=== PATIENT | female | born 1950 | race Caucasian/White ===

== ENCOUNTER 2020-02-28 11:16 | Emergency (ER) | payer OTHER ==
[2020-02-28] MEDS ORDERED: MAGNE/ALUM HYDROXD 30 ML UCUP ONE (12:09)
[2020-02-28] MEDS ORDERED: NA CHLORIDE 0.9% 1,000 ML ONE (12:09)
[2020-02-28] MEDS ORDERED: SIMETHICONE 80 MG TAB ONE (12:09)
[2020-02-28] MEDS ORDERED: LIDOCAINE VISCOUS 2% SOLN 15 ML UDC ONE (12:10)
[2020-02-28 12:41] LABS: Absolute Lymphocytes (CBC) 1.3 K/uL (0.7-4.9); Basophils % 0.4 % (0-1.3); MPV 8.2 fL (7.6-11.3)
--- NOTE | 2020-02-28 12:50 | RAD REPORT ---
EXAM DESCRIPTION: RAD - Chest Single View - 02/28/2020 12:44 pm CLINICAL HISTORY: CHEST PAIN COMPARISON: None TECHNIQUE: AP portable chest image was obtained 02/28/2020 12:44 pm . FINDINGS: Lungs are clear. Cardiac silhouette is enlarged. Vasculature within normal limits. Trachea is midline. No measurable pleural effusion and no pneumothorax. No acute bony abnormality seen. No a cute aortic findings suspected. IMPRESSION: Mild cardiac enlargement without acute failure or volume overload. No acute lung parenchymal process.
[2020-02-28 12:53] LABS: ALT/SGPT 30 U/L (12-78); AST/SGOT 24 U/L (15-37); Albumin 3.2 g/dL (3.4-5.0); Alkaline Phosphatase 85 U/L (45-117); BUN Blood Urea Nitrogen 14 mg/dL (7-18); Bicarbonate 28 mmol/L (21-32); Bilirubin Direct 0.1 mg/dL (0-0.2); Bilirubin Total 0.4 mg/dL (0.2-1.0); Glucose Level 143 mg/dL (74-106); Potassium 4.6 mmol/L (3.5-5.1); Protein, Total 7.5 g/dL (6.4-8.2); Sodium Level 135 mmol/L (136-145); Troponin (Emerg Dept Use Only) < 0.02 ng/mL (0.0-0.045)
--- NOTE | 2020-02-28 13:50 | ER ---
Nurse's Notes [facility] Name: Jenny Cuellar Age: 69 yrs Sex: Female : 1950 Arrival Date: 02/28/2020 Time: 11:18 Bed 17 Private MD: Diagnosis: Cardiomegaly;Anemia, unspecified Presentation: 02/27 11:31 Chief complaint: Patient states: Thursday on the 16 of February I had chest pain at 0400. ca1 Went to [facility] and was transferred to [place]. They did test on me including a cardiac cath technician. They said it was okay. This chest pain started 3 days ago. It starts on the epigastric area and like my esophagus. I also had diarrhea on and off. Denies N/V. I also have low back pain and taking this medication for the liver transplant that I had on 2007. Coronavirus screen: Proceed with normal triage. Patient denies a cough. Patient denies shortness of breath or difficulty breathing. Patient denies measured and/or subjective temperature greater than 100.4F prior to today's visit. Patient denies travel on a cruise ship or to a country the [facility] currently lists as an affected area. Patient denies contact with known and/or suspected case of COVID-19. Ebola Screen: Patient negative for fever greater than or equal to 101.5 degrees Fahrenheit, and additional compatible Ebola Virus Disease symptoms Patient denies exposure to infectious person. Patient denies travel to an Ebola-affected area in the 21 days before illness onset. No symptoms or risks identified at this time. Initial Sepsis Screen: Does the patient meet any 2 criteria? No. Patient's initial sepsis screen is negative. Does the patient have a suspected source of infection? No. Patient's initial sepsis screen is negative. Risk Assessment: Do you want to hurt yourself or someone else? Patient reports no desire to harm self or others. 11:31 Method Of Arrival: Ambulatory ca1 11:31 Acuity: [place] 3 ca1 Historical: - Allergies: 11:40 RICCARDO Inhibitors; ca1 - PMHx: 11:40 Hypertension; Hyperlipidemia; Thyroid problem; ca1 - PSHx: 11:40 Liver Transplant; ca1 - Immunization history:: Adult Immunizations up to date. - Social history:: Smoking status: Patient denies any tobacco usage or history of. Screenin:40 Abuse screen: Denies threats or abuse. Denies injuries from another. Nutritional ca1 screening: No deficits noted. Tuberculosis screening: No symptoms or risk factors identified. Fall Risk IV access (20 points). Assessment: 11:40 General: Appears in no apparent distress. comfortable, Behavior is calm, cooperative, ca1 appropriate for age. Pain: Complains of pain in xyphoid area and mid-sternal area Pain does not radiate. Pain currently is 7 out of 10 on a pain scale. Pain began 2-3 days ago. Is intermittent. Neuro: Level of Consciousness is awake, alert, obeys commands, Oriented to person, place, time, situation. Cardiovascular: Heart tones S1 S2 present Capillary refill < 3 seconds Patient's skin is warm and dry. Rhythm is sinus rhythm. Respiratory: Airway is patent Respiratory effort is even, unlabored, Respiratory pattern is regular, symmetrical, Breath sounds are clear bilaterally. GI: Abdomen is flat, non-distended, Bowel sounds present X 4 quads. Abd is soft and non tender X 4 quads. GI: Reports diarrhea. : No signs and/or symptoms were reported regarding the genitourinary system. EENT: No signs and/or symptoms were reported regarding the EENT system. Derm: Skin is intact, is healthy with good turgor, Skin is pink, warm \T\ dry. Musculoskeletal: Circulation, motion, and sensation intact. Capillary refill < 3 seconds. 12:45 Reassessment: Patient appears in no apparent distress at this time. Patient and/or ca1 family updated on plan of care and expected duration. Pain level reassessed. Patient is alert, oriented x 3, equal unlabored respirations, skin warm/dry/pink. 14:08 Reassessment: Patient appears in no apparent distress at this time. Patient and/or rb1 family updated on plan of care and expected duration. Pain level reassessed. Patient is alert, oriented x 3, equal unlabored respirations, skin warm/dry/pink. Vital Signs: 11:31 BP 140 / 73; Pulse 94; Resp 18 S; Temp 97.5(TE); Pulse Ox 99% on R/A; Weight 79.38 kg ca1 (R); Height 5 ft. 5 in. (165.10 cm) (R); Pain 6/10; 12:55 BP 115 / 56; Pulse 81; Resp 17; Temp 97.6(O); Pulse Ox 100% on R/A; mh5 14:00 BP 122 / 73; Pulse 86; Resp 22; Pulse Ox 100% ; rb1 11:31 Body Mass Index 29.12 (79.38 kg, 165.10 cm) ca1 ED Course: 11:18 Patient arrived in ED. ag5 11:31 Nikki Higuera, BRANDON is Primary Nurse. ca1 11:39 Triage completed. ca1 11:40 Arm band placed on right wrist. ca1 11:43 [facility] Dhillon [facility]C [facility] snw 11:43 Rodrigo Strong MD is Attending Physician. snw 12:10 No provider procedures requiring assistance completed. Initial lab(s) drawn, by ny, ca1 sent to lab. Inserted saline lock: 20 gauge in right antecubital area, using aseptic technique. Blood collected. 12:44 Chest Single View XRAY In Process Unspecified. EDMS 12:56 Patient has correct armband on for positive identification. Placed in gown. Bed in low mh5 position. Call light in reach. Side rails up X 1. Warm blanket given. hide puller on. Pulse ox on. NIBP on. 12:56 EKG done, by ED staff, reviewed by Krissy HESS. 5 14:00 Report given to BRANDON Dowd. ca1 14:24 IV discontinued, Pressure dressing applied. mh5 14:33 IV discontinued, intact, bleeding controlled, No redness/swelling at site. Pressure rb1 dressing applied. Administered Medications: 12:00 Drug: Simethicone 240 mg Route: PO; ca1 13:00 Follow up: Response: No adverse reaction ls4 12:02 Drug: GI Cocktail without - (Maalox Suspension 30 ml, Lidocaine Liquid 2 % 15 ca1 ml) Route: PO; 13:02 Follow up: Response: No adverse reaction ls4 12:13 Drug: NS 0.9% 1000 ml Route: IV; Rate: 125 ml/hr; Site: right antecubital; ca1 13:32 Follow up: IV Status: Completed infusion; IV Intake: 1000ml ls4 Intake: 13:32 IV: 1000ml; Total: 1000ml. ls4 Outcome: 13:49 Discharge ordered by . snw 14:33 Patient left the ED. ls4 14:33 Discharged to home ambulatory. rb1 14:33 Condition: stable 14:33 Discharge instructions given to patient, Instructed on discharge instructions, follow rb1 up and referral plans. Demonstrated understanding of instructions, follow-up care. Signatures: Dispatcher [employer] EDKrissy Lubin, NEWSCAST DIRECTOR-C NEWSCAST DIRECTOR-Csnw Noemí Henderson RN RN rb1 Larissa Lilly [facility] Ivon Wolf RN RN ls4 Nikki Higuera RN RN ca1 Maico Reyes [facility]
--- NOTE | 2020-02-28 13:50 | EDPHYS ---
Physician Documentation [facility] Name: Jenny Cuellar Age: 69 yrs Sex: Female : 1950 Arrival Date: 02/28/2020 Time: 11:18 Bed 17 Private MD: ED Physician Rodrigo Strong HPI: 02/27 11:57 This 69 yrs old Female presents to ER via Ambulatory with complaints of snw Breathing Difficulty, Chest Pain, Chest Pressure. 11:57 The patient has shortness of breath with light activity. Onset: The symptoms/episode snw began/occurred gradually, and became persistent. Duration: The symptoms are continuous. Associated signs and symptoms: Pertinent positives: nausea, feels like food doesn't go down well, sticks and causes discomfort, no vomiting, + nausea, no constipation, + loose stools. Severity of symptoms: At their worst the symptoms were moderate in the emergency department the symptoms are unchanged. The patient has not experienced similar symptoms in the past. cardiac cath last week at [place]. No stent. Historical: - Allergies: 11:40 RICCARDO Inhibitors; ca1 - PMHx: 11:40 Hypertension; Hyperlipidemia; Thyroid problem; ca1 - PSHx: 11:40 Liver Transplant; ca1 - Immunization history:: Adult Immunizations up to date. - Social history:: Smoking status: Patient denies any tobacco usage or history of. ROS: 11:56 Eyes: Negative for injury, pain, redness, and discharge, ENT: Negative for injury, snw pain, and discharge, Neck: Negative for injury, pain, and swelling. 11:56 Respiratory: Negative for shortness of breath, cough, wheezing, and pleuritic chest pain. 11:56 Back: Negative for injury and pain, : Negative for injury, bleeding, discharge, and swelling, MS/Extremity: Negative for injury and deformity, Skin: Negative for injury, rash, and discoloration, Neuro: Negative for headache, weakness, numbness, tingling, and seizure. 11:56 Constitutional: Positive for body aches, fatigue, poor PO intake. 11:56 Cardiovascular: Positive for chest pain. 11:56 Abdomen/GI: Positive for abdominal pain, nausea, gas, loose stools. Exam: 11:55 Constitutional: This is a well developed, well nourished patient who is awake, alert, snw and in no acute distress. Head/Face: Normocephalic, atraumatic. Eyes: Pupils equal round and reactive to light, extra-ocular motions intact. Lids and lashes normal. Conjunctiva and sclera are non-icteric and not injected. Cornea within normal limits. Periorbital areas with no swelling, redness, or edema. ENT: Nares patent. No nasal discharge, no septal abnormalities noted. Tympanic membranes are normal and external auditory canals are clear. Oropharynx with no redness, swelling, or masses, exudates, or evidence of obstruction, uvula midline. Mucous membranes moist. Neck: Trachea midline, no thyromegaly or masses palpated, and no cervical lymphadenopathy. Supple, full range of motion without nuchal rigidity, or vertebral point tenderness. No Meningismus. Chest/axilla: Normal chest wall appearance and motion. Nontender with no deformity. No lesions are appreciated. 11:55 Respiratory: Lungs have equal breath sounds bilaterally, clear to auscultation and percussion. No rales, rhonchi or wheezes noted. No increased work of breathing, no retractions or nasal flaring. Back: No spinal tenderness. No costovertebral tenderness. Full range of motion. 11:55 Skin: Warm, dry with normal turgor. Normal color with no rashes, no lesions, and no evidence of cellulitis. MS/ Extremity: Pulses equal, no cyanosis. Neurovascular intact. Full, normal range of motion. Neuro: Awake and alert, GCS 15, oriented to person, place, time, and situation. Cranial nerves II-XII grossly intact. Motor strength 5/5 in all extremities. Sensory grossly intact. Cerebellar exam normal. Normal gait. Psych: Awake, alert, with orientation to person, place and time. Behavior, mood, and affect are within normal limits. 11:55 Cardiovascular: Rate: normal, Rhythm: regular, Pulses: no pulse deficits are appreciated, Heart sounds: murmur, Edema: is not appreciated. 11:55 Abdomen/GI: Inspection: abdomen appears normal, Bowel sounds: hyperactive, in all quadrants, Palpation: abdomen is soft and non-tender. Vital Signs: 11:31 BP 140 / 73; Pulse 94; Resp 18 S; Temp 97.5(TE); Pulse Ox 99% on R/A; Weight 79.38 kg ca1 (R); Height 5 ft. 5 in. (165.10 cm) (R); Pain 6/10; 12:55 BP 115 / 56; Pulse 81; Resp 17; Temp 97.6(O); Pulse Ox 100% on R/A; mh5 14:00 BP 122 / 73; Pulse 86; Resp 22; Pulse Ox 100% ; rb1 11:31 Body Mass Index 29.12 (79.38 kg, 165.10 cm) ca1 MDM: 12:09 Patient medically screened. snw 13:52 Data reviewed: vital signs, nurses notes. Data interpreted: Pulse oximetry: on room air snw is 100 %. Interpretation: normal. Counseling: I had a detailed discussion with the patient and/or guardian regarding: the historical points, exam findings, and any diagnostic results supporting the discharge/admit diagnosis, lab results, radiology results, the need for outpatient follow up, to return to the emergency department if symptoms worsen or persist or if there are any questions or concerns that arise at home. Special discussion: Based on the patient's history, exam, and Dx evaluation, there is no indication for emergent intervention or inpatient Tx. It is understood by the patient/guardian that if the Sx's persist or worsen they need to return immediately for re-evaluation. Based on the patient's Hx, exam, and Dx evaluation, there is no indication for emergent surgery or inpatient Tx. It is understood by the patient/guardian that if the Sx's persist or worsen they need to return immediately for re-evaluation. Based on the history and exam findings, there is no indication for further emergent testing or inpatient evaluation. I discussed with the patient/guardian the need to see the applications system analyst for further evaluation of the symptoms. I discussed with the patient/guardian the need to see the software support engineer for further evaluation of the symptoms. I discussed with the patient/guardian the need to see the primary care provider for further evaluation of the symptoms. 02/27 11:55 Order name: CBC with Diff; Complete Time: 12:46 snw 02/27 11:55 Order name: Chem 7; Complete Time: 13:08 snw 02/27 11:55 Order name: Chest Single View XRAY; Complete Time: 13:16 snw 02/27 11:55 Order name: LFT's; Complete Time: 13:08 snw 02/27 11:55 Order name: Troponin (emerg Dept Use Only); Complete Time: 13:08 snw 02/27 11:57 Order name: TSH; Complete Time: 13:08 snw 02/27 11:55 Order name: EKG; Complete Time: 11:56 snw 02/27 11:55 Order name: EKG - Nurse/Tech; Complete Time: 12:13 snw Administered Medications: 12:00 Drug: Simethicone 240 mg Route: PO; ca1 13:00 Follow up: Response: No adverse reaction ls4 12:02 Drug: GI Cocktail without - (Maalox Suspension 30 ml, Lidocaine Liquid 2 % 15 ca1 ml) Route: PO; 13:02 Follow up: Response: No adverse reaction ls4 12:13 Drug: NS 0.9% 1000 ml Route: IV; Rate: 125 ml/hr; Site: right antecubital; ca1 13:32 Follow up: IV Status: Completed infusion; IV Intake: 1000ml ls4 Disposition: 02/28/20 13:49 Discharged to Home. Impression: Cardiomegaly, Anemia, unspecified. - Condition is Stable. - Discharge Instructions: Anemia, Nonspecific, Gastritis, Adult. - Medication Reconciliation Form, Thank You Letter, Antibiotic Education, Prescription Opioid Use form. - Follow up: Emergency Department; When: As needed; Reason: Worsening of condition. Follow up: Private Physician; When: 2 - 3 days; Reason: Recheck today's complaints, Continuance of care, Re-evaluation by your physician. Addendum: 03/01/2020 21:11 Co-signature as Attending Physician, Rodrigo Strong MD Did not see or evaluate patient. p s1 I was available in the ED for consultation. Signature for administrative purposes. . Signatures: Dispatcher [employer] EDMS Krissy Ness, LEAD INSTRUCTOR/FLIGHT ATTENDANT-C LEAD INSTRUCTOR/FLIGHT ATTENDANT-Csnw Rodrigo Strong MD MD ps1 Ivon Wolf, RN RN ls4 Nikki Higuera RN RN ca1 Corrections: (The following items were deleted from the chart) 02/27 14:02 13:49 02/28/2020 13:49 Discharged to Home. Impression: Cardiomegaly; Anemia, ls4 unspecified. Condition is Stable. Forms are Medication Reconciliation Form, Thank You Letter, Antibiotic Education, Prescription Opioid Use. Follow up: Emergency Department; When: As needed; Reason: Worsening of condition. Follow up: Private Physician; When: 2 - 3 days; Reason: Recheck today's complaints, Continuance of care, Re-evaluation by your physician. tino 14:33 14:02 02/28/2020 13:49 Discharged to Home. Impression: Cardiomegaly; Anemia, ls4 unspecified. Condition is Stable. Discharge Instructions: Anemia, Nonspecific, Gastritis, Adult. Forms are Medication Reconciliation Form, Thank You Letter, Antibiotic Education, Prescription Opioid Use. Follow up: Emergency Department; When: As needed; Reason: Worsening of condition. Follow up: Private Physician; When: 2 - 3 days; Reason: Recheck today's complaints, Continuance of care, Re-evaluation by your physician. ls4
[2020-02-28 15:00] VITALS: BP 115/56; TEMP 97.6; O2SAT 100
--- OUTSIDE RECORDS SUMMARY | 2020-02-28 22:33 | XMS REPORT | Clinical Summary ---
:1950 Author Organization [facility] Address [address] [place] [address] Care Team Providers Name Role Phone Heena Rivera MD Primary Care Provider [phone] Allergies Active Allergy Reactions Severity Noted Date Comments Bam Inhibitors Hives, Itching 12/25/2012 Medications Medication Sig Dispensed Refills Start Date End Date Status clopidogrel (PLAVIX) 75 Take 75 mg by 0 Active mg tablet mouth. aspirin (ECOTRIN) 81 MG Take 81 mg by 0 Active enteric coated tablet mouth. amLODIPine (NORVASC) 5 Take 5 mg by 0 Active mg tablet mouth. coenzyme Q10 200 mg Take 200 mg by 0 Active capsule mouth. estradiol (VIVELLE-DOT) Place 1 patch on 0 Active 0.05 mg/24 hr the skin. levothyroxine Take 75 mcg by 0 A ctive (SYNTHROID, LEVOXYL) 75 mouth. mcg tablet magnesium oxide Take 400 mg by 0 05/23/2016 Active (MAG-OX) 400 mg tablet mouth 2 (two) times a day. metoprolol tartrate 50 mg- Take one 0 Active (LOPRESSOR) 50 mg tablet daily tablet rosuvastatin (CRESTOR) Take 10 mg by 0 Active 10 MG tablet mouth. calcium carbonate 300 Chew 1 tablet. 0 Active mg (750 mg) tablet,chewable pantoprazole (PROTONIX) TK 1 T PO QD. 1 04/10/2017 Active 40 MG EC tablet tacrolimus (PROGRAF) 1 Take 1 capsule 3 0 Active MG capsule times a day by oral route. Active Problems Problem Noted Date Essential hypertension 06/09/2017 Encounters Date Type Specialty Care Team Description 01/02/2020 Travel after 02/27/2019 Social History Tobacco Use Types Packs/Day Years Used Date Former Smoker Sex Assigned at Date Recorded Not on file Job Start Date Occupation Industry Not on file Not on file Not on file Travel History Travel Start Travel End No recent travel history available. Last Filed Vital Signs Not on file Plan of Treatment Date Type Specialty Care Team Description 03/06/2020 Office Visit Cardiology Jarvis Bermudez MD [address] [facility] [address] [place], [place] [address] [phone] Health Maintenance Due Date Last Done Comments BREAST CANCER SCREENING 2001 COLONOSCOPY SCREENING 2001 SHINGLES VACCINES (#1) 2001 65+ PNEUMOCOCCAL VACCINE (1 of 2 - PCV13) 2016 INFLUENZA VACCINE 03/24/2020 Results Not on fileafter 02/27/2019 Insurance Payer Benefit Plan / Subscriber ID Effective Dates Phone Addre ss Type Group MEDICARE MEDICARE PART A xxxxxxxxxxx 2016-Present [place], [place] Medicare AND B AETNA AETNA PPO OPEN xxxxxxxxxx 2000-Present PPO CHOICE Advance Directives For more information, please contact: [phone] Type Date Recorded Patient Authorization Representative Explanati on Advance Directives, Living Will and Medical Power of Molder Wax Ball
--- OUTSIDE RECORDS SUMMARY | 2020-02-28 22:34 | XMS REPORT | Clinical Summary ---
:1950 Author Organization [facility] Address [address] [place] [address] Care Team Providers Name Role Phone Nasreen Obed Primary Care Provider Allergies Active Allergy Reactions Severity Noted Date Comments Bam Inhibitors Hives, Itching 12/25/2012 Medications Medication Sig Dispensed Refills Start Date End Date Status omega-3 acid ethyl Take 1 g by 0 Active esters (LOVAZA) 1 mouth 2 (two) gram capsule times daily . lansoprazole Take 30 mg by 0 Act kenya (PREVACID) 30 MG mouth daily. capsule rosuvastatin Take 20 mg by 0 Act kenya (CRESTOR) 10 MG mouth daily . tablet clopidogrel Take 75 mg by 0 Acti ve (PLAVIX) 75 mg mouth daily. tablet aspirin 81 MG EC Take 81 mg by 0 Active tablet mouth 3 (three) times a week Patient states she takes the on Thursday and Thursday per PCP recommendation . amLODIPine Take 5 mg by 0 Active (NORVASC) 5 MG mouth daily . tablet levothyroxine Take 75 mcg by 0 A ctive (SYNTHROID, mouth daily. LEVOTHROID) 75 MCG tablet fexofenadine Take 180 mg by 0 Ac tive (MATTHEW) 180 MG mouth daily. tablet metoprolol Take 50 mg by 0 Activ e (TOPROL-XL) 100 MG mouth daily . 24 hr tablet coenzyme Q10 (CO Take 200 mg by 0 Active Q-10) 200 mg mouth daily. capsule lactobacillus Take 14 mg by 0 Ac tive acidophilus Cap mouth. CALCIUM CARBONATE Take 2 tablets 0 Active ORAL by mouth once Per patient 2 gummies = 1000 mg. cevimeline (EVOXAC) Take 30 mg by 0 Active 30 mg capsule mouth 3 (three) times daily. fluticasone 2 sprays by 0 Active (FLONASE) 50 Nasal route 2 mcg/actuation nasal (two) times spray daily. ALPRAZolam (XANAX) TK / TO 1 T 2 06/20/2019 Active 0.5 MG tablet PO QD PRN magnesium oxide Take 2 tablets 0 06/30/2019 Active (MAG-OX) 400 mg (800 mg total) (241.3 mg by mouth 2 magnesium) tablet (two) times daily. tacrolimus TAKE 2 270 capsule 3 01/13/2020 Active (PROGRAF) 1 MG CAPSULES BY capsule MOUTH EVERY MORNING AND 1 CAPSULE BY MOUTH EVERY EVENING.. estradiol Place 1 patch 0 Discon tinued (VIVELLE-DOT) 0.05 onto the skin 9 mg/24 hr patch twice a week. magnesium oxide Take 1 tablet 270 tablet 3 05/23/2016 06/30/20 1 Discontinued (MAG-OX) 400 mg (400 mg total) 9 tablet by mouth 3 (three) times daily with meals. tacrolimus TAKE 2 270 capsule 3 12/27/2018 Discon tinued (PROGRAF) 1 MG CAPSULES BY 0 capsule MOUTH EVERY MORNING AND 1 CAPSULE EVERY EVENING. Active Problems Problem Noted Date Immunosuppressed status 05/29/2015 Last Assessment & Plan: Patient is currently on tacrolimus monot herapy 2mg twice daily. Given that she has done very well overall without evidence of rejection and her known CKD, we will titrate her Prograf down to 2 mg and 1 m g daily. HCV (hepatitis C virus) 05/29/2015 Last Assessment & Plan: The patient achieved sustained virologic response prior to transplant. HCV was treated with IFN and Ribavirin in 1998. Transplant was done for HCC, not for decompensated cirrhosis. Her hepatitis C viral load was undetectable as of 05/03/2013. We will recheck HCV RNA levels today to verify SVR. Cancer screening 05/29/2015 Last Assessment & Plan: We recommend the patient follow-up with [facility] [employer] for annual skin cancer screening, she states she completed this year. She had a colonoscopy with Dr. Patricio in [place], had polyps removed and needs repeat colonoscopy in 3 years. She is up to date with her Pap smear and states she is having a7iupom mammograms. CKD (chronic kidney disease) 05/29/2015 Last Assessment & Plan: Renal function has remained stably abnor mal on Tacrolimus. Creatinine in the 1.3-1.4 range since 2012. Labs pending from angelia garcia. She follows with a cream tester in [place]. We will reduce Tacrolimus dosin g to 2 mg and 1 mg daily. Status post liver transplantation 05/09/2014 Last Assessment & Plan: The patient underwent liver transplantation 03/27/2008 due to HCC. Currently on monotherapy of 2mg tacrolimus every 12 hours. Liver tests are within normal limits. The patient has not historically had any issues related to graft rejection. We w ill plan to decrease tacrolimus to 2 mg qAM and 1 mg qhs. Hepatocellular carcinoma 05/09/2014 Last Assessment & Plan: Annual imaging since transplant in 2007 has shown no evidence of recurrence of HCC. Most recent MRI 05/03/2013 showed no suspicious enhancing masses. US in 2013 showed unremarkable liver graft. She will have repeat abdominal US today. Encounters Date Type Specialty Care Team Description 02/28/2020 Telephone Transplant Negro, Labs Only (PTN RETURNED Hepatology Toña MY CALL; SHE IS AWARE SHE WAS DUE FOR LABS TODAY, BUT SHE IS CURRENTLY IN TH E ER FOR GASTRO SXS. SHE WILL GET LABS ON 03/01/2020;) 02/28/2020 Documentation Transplant Negro, Hepatology Toña 01/13/2020 Refill Transplant Obed [facility] Hepatology Guillermo Morris MD 12/12/2019 Documentation Transplant Negro, Hepatology Toña 10/31/2019 Telephone Transplant Negro, Labs Only (LVM RE: Hepatology Toña LAB/RX RESULTS; NO MED CHANGES; REPEAT BLD WK X4 MTHS; 2019; [facility]; [facility];) 07/01/2019 Telephone Transplant Negro, Labs Only (LVM RE: Hepatology To[facility] LAB/RX RESULTS; NO MED CHANGES; REPEAT BLD WK X4 MTHS; 2019; [facility]; GGT;) 06/30/2019 Hospital Encounter Status po st liver transplantation (HCC); Hepatitis C vir us infection without hepatic coma, unspecified chronicity; Nonspecific fin dings on examination of blood; Encounter for t herapeutic drug monitoring; Encounter for l daisha-term (current) use of high-risk medication; Hepatocellular carcinoma (HCC); Disorder of mag nesium metabolism; Complication of transplanted liver, unspecified complication (HCC) 06/30/2019 Hospital Encounter Radiology Joselin Pruitt Status post liver transplantation (HCC); MD Kerwin Hepatitis C vir us infection without hepatic coma, unspecified chronicity; Nonspecific fin dings on examination of blood; Encounter for t herapeutic drug monitoring; Encounter for l daisha-term (current) use of high-risk medication; Hepatocellular carcinoma (HCC); Disorder of mag nesium metabolism; Complication of transplanted liver, unspecified complication (HCC) 06/30/2019 Follow-Up Transplant Joselin Pruitt Status post l iver transplantation (HCC) (Primary Dx); Hepatology MD Kerwin Hepatocellular carcinoma (HCC); Immunosuppresse d status (HCC); Cancer screenin g; Hepatitis C vir us infection without hepatic coma, unspecified chronicity 06/30/2019 Orders Only Transplant Joselin Pruitt Status post l iver transplantation (HCC); Hepatology MD Kerwin Hepatitis C vir us infection without hepatic coma, unspecified chronicity; Nonspecific fin dings on examination of blood; Encounter for t herapeutic drug monitoring; Encounter for l daisha-term (current) use of high-risk medication; Hepatocellular carcinoma (HCC); Disorder of mag nesium metabolism; Complication of transplanted liver, unspecified complication (HCC) 06/30/2019 Orders Only Transplant Bryanna, Status post nora er transplantation (HCC) (Primary Dx); Hepatology BRANDON Ugarte Nonspecific fin dings on examination of blood; Encounter for t herapeutic drug monitoring; Encounter for l daisha-term (current) use of high-risk medication; Complication of transplanted liver, unspecified complication (HCC); Disorder of mag nesium metabolism 06/30/2019 Documentation Transplant Negro, Hepatology Toña 06/30/2019 Outside Orders Chaparro Downey 03/08/2019 Orders Only Transplant Katrina Estrada Status post li harjinder transplantation (HCC) (Primary Dx); Hepatology BRANDON Torres Hepatitis C vir us infection without hepatic coma, unspecified chronicity; Nonspecific fin dings on examination of blood; Encounter for t herapeutic drug monitoring; Encounter for l daisha-term (current) use of high-risk medication; Hepatocellular carcinoma (HCC); Disorder of mag nesium metabolism; Complication of transplanted liver, unspecified complication (HCC) 03/07/2019 Telephone Transplant Negro, Labs Only (LVM RE: Hepatology To[facility] LAB/RX RESULTS; NO MED CHANGES; REPEAT BLD WK X4 MTHS; 2018; [facility]; G GT;) 03/01/2019 Documentation Transplant NegroEdvin Toña after 02/27/2019 Social History Tobacco Use Types Packs/Day Years Used Date Former Smoker Quit: 05/03/19 72 Smokeless Tobacco: Never Used Alcohol Use Drinks/Week oz/Week Comments No Sex Assigned at Date Recorded Not on file Job Start Date Occupation Industry Not on file Not on file Not on file Travel History Travel Start Travel End No recent travel history available. Last Filed Vital Signs Vital Sign Reading Time Taken Blood Pressure 151/84 06/30/2019 8:42 AM [employer] Pulse 74 06/30/2019 8:42 AM [employer] Temperature 36.5 C (97.7 F) 06/30/2019 8:42 AM [employer] OPER[employer] Respiratory Rate 16 06/30/2019 8:42 AM [employer] OPER[employer] Oxygen Saturation 100% 06/30/2019 8:42 AM [employer] OPER[employer] Inhaled Oxygen Concentration - - Weight 83.1 kg (183 lb 3.2 oz) 06/30/2019 8:42 AM [employer] OPER[employer] Height 165.5 cm (5' 5.16") 06/30/2019 8:42 AM [employer] M[employer] OPER[employer] Body Mass Index 30.34 06/30/2019 8:42 AM [employer]ING [employer] OPERATOR Plan of Treatment Date Type Specialty Care Team Description 07/05/2020 Orders Only Transplant Hepatology 07/05/2020 Follow-Up Transplant Hepatology Carlie Pruitt MD [address] [address] 07/05/2020 Appointment Radiology 07/05/2020 Appointment Health Maintenance Due Date Last Done Comments COLON CANCER SCREENING COLONOSCOPY 1950 BREAST CANCER SCREENING 09/10/2014 09/10/2012 PNEUMOCOCCAL 65+ HIGH/HIGHEST RISK (1 of 2 - PCV13) 2016 MEDICARE ANNUAL WELLNESS (YEAR 2 or FIRST YEAR if no 02/22/2017 IPPE) INFLUENZA VACCINE (#1) 2020 Procedures Procedure Name Priority Date/Time Associated Diagnosis Comme nts US ABDOMINAL WITH Routine 06/30/2019 11:35 Status post liver R esults for this DOPPLER AM [employer]ING M[employer] OPERATOR transplantation (HCC) procedure are in Hepatitis C virus the result s infection without section. hepatic coma, unspecified principal clerk nicity Nonspecific findings on examination of blood Encounter for therapeutic drug monitoring Encounter for long-term (current) use of high-risk medication Hepatocellular carcinoma (HCC) Disorder of magnesium metabolism Complication of transplanted liver, unspecified complication (HCC) XR CHEST 2 VIEWS Routine 06/30/2019 10:34 Status post liver Re sults for this AM [employer] OPER[employer] transplantation (HCC) procedure are in Hepatitis C virus the result s infection without section. hepatic coma, unspecified principal clerk nicity Nonspecific findings on examination of blood Encounter for therapeutic drug monitoring Encounter for long-term (current) use of high-risk medication Hepatocellular carcinoma (HCC) Disorder of magnesium metabolism Complication of transplanted liver, unspecified complication (HCC) HEPATITIS C PCR, Routine 06/30/2019 8:25 Status post liver Re sults for this QUANTITATIVE AM [employer] M[employer] OPERATOR transplantation (HCC) procedure are in Hepatitis C virus the result s infection without section. hepatic coma, unspecified principal clerk nicity Nonspecific findings on examination of blood Encounter for therapeutic drug monitoring Encounter for long-term (current) use of high-risk medication Hepatocellular carcinoma (HCC) Disorder of magnesium metabolism Complication of transplanted liver, unspecified complication (HCC) (CELLAVISION MANUAL Routine 06/30/2019 8:24 Status post liver Results for this DIFF) AM [employer] OPERATOR transplantation (HCC) procedure are in Hepatitis C virus the result s infection without section. hepatic coma, unspecified principal clerk nicity Nonspecific findings on examination of blood Encounter for therapeutic drug monitoring Encounter for long-term (current) use of high-risk medication Hepatocellular carcinoma (HCC) Disorder of magnesium metabolism Complication of transplanted liver, unspecified complication (HCC) CBC W/PLT COUNT & Routine 06/30/2019 8:24 Status post liver R esults for this AUTO DIFFERENTIAL AM [employer]ING M[employer] OPERATOR transplantatio n (HCC) procedure are in Hepatitis C virus the result s infection without section. hepatic coma, unspecified principal clerk nicity Nonspecific findings on examination of blood Encounter for therapeutic drug monitoring Encounter for long-term (current) use of high-risk medication Hepatocellular carcinoma (HCC) Disorder of magnesium metabolism Complication of transplanted liver, unspecified complication (HCC) ALPHA FETOPROTEIN Routine 06/30/2019 8:24 Status post liver R esults for this (AFP), TUMOR MARKER AM [employer] GR[employer]ING M[employer] OPERATOR transplantat ion (HCC) procedure are in Hepatitis C virus the result s infection without section. hepatic coma, unspecified principal clerk nicity Nonspecific findings on examination of blood Encounter for therapeutic drug monitoring Encounter for long-term (current) use of high-risk medication Hepatocellular carcinoma (HCC) Disorder of magnesium metabolism Complication of transplanted liver, unspecified complication (HCC) TACROLIMUS LEVEL Routine 06/30/2019 8:24 Status post liver Re sults for this AM [employer]ING M[employer] OPERATOR transplantation (HCC) procedure are in Hepatitis C virus the result s infection without section. hepatic coma, unspecified principal clerk nicity Nonspecific findings on examination of blood Encounter for therapeutic drug monitoring Encounter for long-term (current) use of high-risk medication Hepatocellular carcinoma (HCC) Disorder of magnesium metabolism Complication of transplanted liver, unspecified complication (HCC) PHOSPHORUS Routine 06/30/2019 8:24 Status post liver Result s for this AM [employer]ING [employer] OPERATOR transplantation (HCC) procedure are in Hepatitis C virus the result s infection without section. hepatic coma, unspecified principal clerk nicity Nonspecific findings on examination of blood Encounter for therapeutic drug monitoring Encounter for long-term (current) use of high-risk medication Hepatocellular carcinoma (HCC) Disorder of magnesium metabolism Complication of transplanted liver, unspecified complication (HCC) MAGNESIUM Routine 06/30/2019 8:24 Status post liver Result s for this AM [employer] OPERATOR transplantation (HCC) procedure are in Hepatitis C virus the result s infection without section. hepatic coma, unspecified principal clerk nicity Nonspecific findings on examination of blood Encounter for therapeutic drug monitoring Encounter for long-term (current) use of high-risk medication Hepatocellular carcinoma (HCC) Disorder of magnesium metabolism Complication of transplanted liver, unspecified complication (HCC) CBC W/PLT COUNT & Routine 06/30/2019 8:24 Status post liver R esults for this AUTO DIFFERENTIAL AM [employer] M[employer] OPERATOR transplantatio n (HCC) procedure are in Hepatitis C virus the result s infection without section. hepatic coma, unspecified principal clerk nicity Nonspecific findings on examination of blood Encounter for therapeutic drug monitoring Encounter for long-term (current) use of high-risk medication Hepatocellular carcinoma (HCC) Disorder of magnesium metabolism Complication of transplanted liver, unspecified complication (HCC) COMPREHENSIVE Routine 06/30/2019 8:24 Status post liver Resul ts for this METABOLIC PANEL AM [employer] OPER[employer] transplantation (HCC) procedure are in Hepatitis C virus the result s infection without section. hepatic coma, unspecified principal clerk nicity Nonspecific findings on examination of blood Encounter for therapeutic drug monitoring Encounter for long-term (current) use of high-risk medication Hepatocellular carcinoma (HCC) Disorder of magnesium metabolism Complication of transplanted liver, unspecified complication (HCC) BILIRUBIN, DIRECT Routine 06/30/2019 8:24 Status post liver R esults for this AM [employer]PER[employer] transplantation (HCC) procedure are in Hepatitis C virus the result s infection without section. hepatic coma, unspecified principal clerk nicity Nonspecific findings on examination of blood Encounter for therapeutic drug monitoring Encounter for long-term (current) use of high-risk medication Hepatocellular carcinoma (HCC) Disorder of magnesium metabolism Complication of transplanted liver, unspecified complication (HCC) after 02/27/2019 Results US abdominal with doppler (06/30/2019 11:35 AM CEMENT GRINDING MILL OPERATOR) Specimen Narrative Performed At FINAL REPORT R&L TECHNIQUE: Grayscale ultrasound of the a bdomen with color Doppler and spectral Doppler ultrasound of the delmar l/hepatic vasculature. INDICATION: 69-year-old woman with hepat ocellular carcinoma status post liver transplant. COMPARISON: Abdomen ultrasound 8. FINDINGS: LIVER: Prior orthotopic liver transplant ation. The liver is normal in size. Increased echogenicity of the live r, consistent with hepatic steatosis. No focal liver lesions. HEPATIC VASCULATURE: Main portal vein me asures 1.1 cm in diameter. Portal veins are patent with normal wave form and directionality. Flow velocity in the main portal vein is with in normal limits. The hepatic arteries are patent with normal flow brian ocities, resistive indices, and waveforms. The hepatic veins and con fluence are patent. BILIARY: Gallbladder: Prior cholecystectomy. Common bile duct is slightly prominent a nd measures 0.8 cm in caliber. No intrahepatic biliary ductal dilatation. PANCREAS: Visualized portions of the ferguson creas are unremarkable. SPLEEN: No splenomegaly. PERITONEUM: No free fluid. KIDNEYS: Both kidneys are normal in size . No hydronephrosis. No sonographically evident solid mass lesio n. MIDLINE VASCULATURE: The visualized infe rior vena cava is patent. The maximum visualized aortic diameter is 2. 3 cm.Splenic artery and vein are patent. IMPRESSION: Steatosis of the transplant liver. Unremarkable Doppler evaluation of the p ortal and hepatic vasculature. Slightly prominent common bile duct, lik franko reservoir effect. This finding may be correlated with liver fun ction tests with cholestasis. Signed: Michelle Soler MD Report Verified Date/Time:06/30/2019 13:26:43 Reading Location: [facility] 10th Flr Radiolog y Reading Room Procedure Note Interface, External Ris In - 06/30/2019 1:28 PM CEMENT GRINDING MILL OPERATOR FINAL REPORT TECHNIQUE: Grayscale ultrasound of the a bdomen with color Doppler and spectral Doppler ultrasound of the delmar l/hepatic vasculature. INDICATION: 69-year-old woman with hepat ocellular carcinoma status post liver transplant. COMPARISON: Abdomen ultrasound 8. FINDINGS: LIVER: Prior orthotopic liver transplant ation. The liver is normal in size. Increased echogenicity of the live r, consistent with hepatic steatosis. No focal liver lesions. HEPATIC VASCULATURE: Main portal vein me asures 1.1 cm in diameter. Portal veins are patent with normal wave form and directionality. Flow velocity in the main portal vein is with in normal limits. The hepatic arteries are patent with normal flow brian ocities, resistive indices, and waveforms. The hepatic veins and con fluence are patent. BILIARY: Gallbladder: Prior cholecystectomy. Common bile duct is slightly prominent a nd measures 0.8 cm in caliber. No intrahepatic biliary ductal dilatation. PANCREAS: Visualized portions of the ferguson creas are unremarkable. SPLEEN: No splenomegaly. PERITONEUM: No free fluid. KIDNEYS: Both kidneys are normal in size . No hydronephrosis. No sonographically evident solid mass lesio n. MIDLINE VASCULATURE: The visualized infe rior vena cava is patent. The maximum visualized aortic diameter is 2. 3 cm. Splenic artery and vein are patent. IMPRESSION: Steatosis of the transplant liver. Unremarkable Doppler evaluation of the p ortal and hepatic vasculature. Slightly prominent common bile duct, lik franko reservoir effect. This finding may be correlated with liver fun ction tests with cholestasis. Signed: Michelle Soler MD Report Verified Date/Time: 06/30/2019 1 3:26:43 Reading Location: [facility] 10th Flr Radiolog y Reading Room Performing Organization Address City/State/Zipcode Phone Number R&L XR chest 2 views (06/30/2019 10:34 AM CEMENT GRINDING MILL OPERATOR) Specimen Narrative Performed At FINAL REPORT GE RIS TECHNIQUE: Frontal and lateral views of the chest. INDICATION: 69-year-old woman with hepat ocellular carcinoma status post liver transplant. COMPARISON: Chest radiographs 07/08/2018 . FINDINGS: LINES/TUBES: None. LUNGS: The lungs are well inflated and c lear. PLEURA: No pleural effusion or pneumotho rax. HEART AND MEDIASTINUM: The cardiomediast inal silhouette is within normal limits. SOFT TISSUES AND BONES: Degenerative darren nges of the visualized spine. Soft tissues are unremarkable. IMPRESSION: No acute cardiopulmonary abnormalities. Signed: Michelle Soler MD Report Verified Date/Time:06/30/2019 12:36:06 Reading Location: [address] Rad[address] Reading Room Procedure Note Interface, External Ris In - 06/30/2019 12:38 PM CEMENT GRINDING MILL OPERATOR FINAL REPORT TECHNIQUE: Frontal and lateral views of the chest. INDICATION: 69-year-old woman with hepat ocellular carcinoma status post liver transplant. COMPARISON: Chest radiographs 07/08/2018 . FINDINGS: LINES/TUBES: None. LUNGS: The lungs are well inflated and c lear. PLEURA: No pleural effusion or pneumotho rax. HEART AND MEDIASTINUM: The cardiomediast inal silhouette is within normal limits. SOFT TISSUES AND BONES: Degenerative darren nges of the visualized spine. Soft tissues are unremarkable. IMPRESSION: No acute cardiopulmonary abnormalities. Signed: Michelle Soler MD Report Verified Date/Time: 06/30/2019 1 2:36:06 Reading Location: [address] Radiolog y Reading Room Performing Organization Address City/State/Zipcode Phone Number [facility] Hepatitis C PCR, Quantitative (06/30/2019 8:25 AM CEMENT GRINDING MILL OPERATOR) HCV PCR, Quantitative HCV RNA not detected HCV RNA not detected [facility] ER Specimen Blood Narrative Performed At This test uses a Real-Time Polymerase Chain [facility] Reaction (RT-PCR) methodology and was performed using CO[employer] Ampliprep/COLE TaqMan HCV test kit version 2.0 ([employer]). Reportable range for this assay is 15 - 100,000,000 IU per mL (1.18 - 8.00 Log IU/mL). Performing Organization Address City/[facility] Centercode Phone Number [place] [phone] [place] [address] [place] Manual Differential (06/30/2019 8:24 AM CEMENT GRINDING MILL OPERATOR) % Neutros 59 % [facility] % Lymphs 27 % [facility] % Monos 6 % [facility] % Eos 4 % [facility] % Atypical Lymphs 4 (H) 0 - 0 % [facility] # Neutros 4.01 1.56 - 6.13 K/ul [facility] # Lymphs 1.84 1.18 - 3.74 K/ul [facility] # Monos 0.41 (H) 0.24 - 0.36 K/uL [facility] # Eos 0.27 0.04 - 0.36 K/uL [facility] # Atypical Lymphs 0.27 (H) 0.00 - 0.00 K/uL [facility] Total Counted 100 [facility] RBC Morphology Normal [facility] Smudge Cells Present [facility] Giant Platelet Present [facility] Artifact Present [facility] Platelet Conc Adequate [facility] Specimen Blood Narrative Performed At Received comment: [facility] User comments: Slide comments: Performing Organization Address [facility]/Zipcode Phone Number [address] [address] CENTER CBC with platelet count + automated diff (06/30/2019 8:24 AM CEMENT GRINDING MILL OPERATOR) WBC 6.8 3.5 - 10.5 K/L [facility] RBC 4.12 3.93 - 5.22 M/L [facility] Hemoglobin 11.9 11.2 - 15.7 GM/DL [facility] [place] Hematocrit 37.7 34.1 - 44.9 % [facility] MCV 91.5 79.4 - 94.[address] [facility] MCH 28.9 25.6 - 32.2 pg [facility] MCHC 31.6 (L) 32.2 - 35.5 GM/DL [facility] [place] [facility] RDW 14.9 (H) 11.7 - 14.4 % [facility] Platelets 294 150 - 450 K/CU MM [facility] [place] MPV 10.1 9.4 - 12.3 fL [facility] nRBC 0 0 - 0 /100 WBC [facility] Specimen Blood Performing Organization Address City/State/Zipcode Phone Number [place] [phone] [place] [address] [place] Tacrolimus level (06/30/2019 8:24 AM [employer]) Tacrolimus Lvl 5.1 (L) 10.0 - 20.0 ng/mL [facility] [place] Specimen Blood Performing Organization Address City/[facility]/Zipcode Phone Number [place] [phone] [place] [address] C[place] Alpha fetoprotein (AFP), tumor marker (06/30/2019 8:24 AM [employer]PER[employer]) Alpha-Fetoprotein 6.7 <10.0 ng/mL [facility] [place] Specimen Blood Performing Organization Address City/State/Zipcode Phone Number [facility] [address] [address] [place] Phosphorus (06/30/2019 8:24 AM [employer]PER[employer]) Phosphorus 4.0 2.3 - 4.7 mg/dL [facility] Specimen Blood Performing Organization Address City/[facility]/Zipcode Phone Number [address] [address] [place] Magnesium (06/30/2019 8:24 AM [employer]PER[employer]) Magnesium 1.9 1.6 - 2.6 mg/dL [facility] Specimen Blood Performing Organization Address City/[facility]/Zipcode Phone Number [address] [address] [place] Bilirubin, direct (06/30/2019 8:24 AM [employer]PER[employer]) Bilirubin, Direct 0.1 0.1 - 0.5 mg/dL [facility] [place] Specimen Blood Performing Organization Address City/[facility]/Zipcode Phone Number [address] [address] [place] Comprehensive metabolic panel (06/30/2019 8:24 AM [employer]PER[employer]) Protein, Total 7.7 6.0 - 8.3 gm/dL [facility] Albumin 4.4 3.5 - 5.0 g/dL [facility] Alkaline Phosphatase 64 40 - 150 U/L [facility] Total Bilirubin 0.3 0.2 - 1.2 mg/dL [facility] Sodium 139 136 - 145 meq/L [facility] Potassium 4.7 3.5 - 5.1 meq/L [facility] Chloride 102 98 - 107 meq/L [facility] CO2 31 (H) 22 - 29 meq/L [facility] BUN 18 7 - 21 mg/dL [facility] Creatinine 1.21 0.57 - 1.25 mg/dL [facility] Glucose 119 (H) 70 - 105 mg/dL [facility] Calcium 9.8 8.4 - 10.2 mg/dL [facility] AST 32 5 - 34 U/L [facility] ALT 48 6 - 55 U/L [facility] EGFR 44Comment: ESTIMATED GFR mL/min/1.73 sq m [facility] CREATININE CLEARANCE IN PREDICTING GLOMERULAR FILTRATION RATE. ESTIMATED GFR IS NOT APPLICABLE FOR DIALYSIS PATIENTS. Specimen Blood Performing Organization Address City/State/Zipcode Phone Number [facility] [address] [place] [address] CENTER after 02/27/2019 Insurance Payer Benefit Plan / Group Subscriber ID Type Phone A ddress MEDICARE MEDICARE A B xxxxxxxxxxx Medicare [employer] - MGD CARE [employer] INDEMNITY NON CONTR xxxxxxxxxx Comm (Home) [address] [place] [phone]
--- OUTSIDE RECORDS SUMMARY | 2020-02-28 22:36 | XMS REPORT | Continuity of Care Document ---
:1950 Author Organization [facility] t Address [address] [place] [address] Dr. Rayo. [address] [place] [address] Care Team Providers Name Role Phone Dinah Rivera MD Primary Care Physician Negro Attending Clinician Unavailable Guillermo Alicea MD Attending Clinician Giovanni Brasher Attending Clinician Zaire Pruitt MD Attending Clinician ZAIRE PRUITT Attending Clinician Unavailable Bryanna RN Attending Clinician Unavailable Obed Downey Attending Clinician Sean TAYLOR, M Attending Clinician Unavailable MISAEL CARDENAS Attending Clinician Unavailable Payers Payer Name Policy Policy Number Effective Expiration Source Type Date Date MEDICAREMEDICARE A xxxxxxxxxxx [facility] [place] BxxxxxxxxxxxMedic[facility] - Or dical Center AETNA - MGD CAREAETNA xxxxxxxxxx [facility] INDEMNITY NON - Medical CONTRxxxxxxxxxxComm Cente r MEDICAREMEDICARE PART A xxxxxxxxxxx 2016 [place] AND 00:00:00 Zoroastrian Bxxxxxxxxxxx2016-Pre [place] [facility] AETNAAETNA PPO OPEN xxxxxxxxxx [address] [place] CHOICExxxxxxxxxx2000 00:00:00 Zoroastrian -PresentPPO Problems Condition Condition Condition Status Onset Resolution Last Treating Co mments Source Name Details Category Date Date Treatment Clinician Date Essential Essential Disease Active 2016-08 Stephania bell hypertensi hypertensi 0-17 Me thodi on on 00:00: st 00 Immunosupp Immunosupp Disease Active 2014-[address] ressed ressed 0-06 Bob Bess - status status 00:00: t & Plan: Medical 00 Patient Center is currently on tacrolimu s monothera py 2mg twice daily. Given that she has done very well overall without evidence of rejection and her known CKD, we will titrate her Prograf down to 2 mg and 1 mg daily. HCV HCV Disease Active 2014-[address] (hepatitis (hepatitis 0-06 Bob Bess - C virus) C virus) 00:00: t & Plan: Med ical 00 The Center patient achieved sustained virologic response prior to transplan t. HCV was treated with IFN and Ribavirin in 1998. Transplan t was done for HCC, not for decompens ated cirrhosis . Her hepatitis C viral load was undetecta ble as of 05/03/2013 . We will recheck HCV RNA levels today to verify SVR. Cancer Cancer Disease Active 2014-08 Last [facility] St screening screening 0-06 Assessmen Estrellita slaughter - 00:00: t & Plan: Medical 00 We Center recommend the patient follow-up with Dermatolo gist for annual skin cancer screening , she states she completed this year. She had a colonosco py with Dr. Patricio in [place], had polyps removed and needs repeat colonosco py in 3 years. She is up to date with her Pap smear and states she is having i1ykzaf mammogram s. CKD CKD Disease Active 2014-[address] (chronic (chronic 0-06 Bob Hutchinson es - kidney kidney 00:00: t & Plan: Medical disease) disease) 00 Renal Center function has remained stably abnormal on Tacrolimu s. Creatinin e in the 1.3-1.4 range since 2012. Labs pending from today. She follows with a nephrolog ist in [place]. We will reduce Tacrolimu s dosing to 2 mg and 1 mg daily. Status Status Disease Active Last [facility] St post liver post liver 9-16 Bob Bess - transplant transplant 00:00: t & Plan: Medical ation ation 00 The Center patient underwent liver transplan tation 03/27/2008 due to HCC. Currently on monothera py of 2mg tacrolimu s every 12 hours. Liver tests are within normal limits. The patient has not historica lly had any issues related to graft rejection . We will plan to decrease tacrolimu s to 2 mg qAM and 1 mg qhs. Hepatocell Hepatocell Disease Active Last [facility] ular ular 05-09 [facility] - carcinoma carcinoma 00:00: t & Plan: M edical 00 Annual Center imaging since transplan t in 2007 has shown no evidence of recurrenc e of HCC. Most recent MRI 05/03/2013 showed no suspiciou s enhancing masses. US in 2013 showed unremarka ble liver graft. She will have repeat abdominal US today. Hyperlipid Problem Active 2020-01-07 M emoria emia 23:46:57 l (disorder) [place] Hyperlipid emia (disorder) Active Problem 01/07/2020 [facility] Hypertensi Problem Active 2020-01-07 M emoria ve 23:46:57 l disorder, Alejandro systemic Hypertensi arterial ve (disorder) disorder, systemic arterial (disorder) Active Problem 01/07/2020 [facility] Hypothyroi Problem Active 2020-01-07 M emoria dism 23:46:57 l (disorder) [place] n Hypothyroi dism (disorder) Active Problem 01/07/2020 [facility] Lumbar Problem Active 2020-01-07 Memor ia radiculopa 23:46:57 l thy Lumbar [place] (disorder) radiculopa thy (disorder) Active Problem 01/07/2020 [facility] Allergies, Adverse Reactions, Alerts Allergy Allergy Status Severity Reaction(s) Onset Inactive Treating Comm ents Source Name Type Date Date Clinician Bam Propensi Active Hives, [place] Inhibito ty to Itching 12-25 Methodi rs adverse 00:00: st reaction 00 s to drug Bam Drug Active Hives, [facility] Inhibito Allergy Itching -04 [facility] - rs 00:00: Medical 00 Center BAM BAM Active Memoria inhibito inhibito l rs rs Alejandro Social History Social Habit Start Date Stop Date Quantity Comments Source Sex Assigned At [facility] History of tobacco 1971-05-03 Current smoker MIRIAM Palmer [place] - use 00:00:00 [facility] Smoking Status Start Date Stop Date Source Former smoker 2019-06-30 00:00:00 2019-06-30 00:00:[address] [facility] Medications Ordered Filled Start Stop Current Ordering Indication Dosage Frequency Signature Comments Components Source Medication Medication Date Date Medication? Clinician (SIG) Name Name tacrolimus Yes TAKE 2 [facility] (PROGRAF) 1 5-22 CAPSULES Luke s - MG capsule 00:00: BY MOUTH Med ical 00 EVERY Center MORNING AND 1 CAPSULE BY MOUTH EVERY EVENING.. Alprazolam Yes 0 Memoria 0.5 MG Oral 2-14 Refill(s) l Tablet 21:24: Alejandro 00 baclofen 10 Yes 10 mg = 1 M emoria mg oral 1-03 tab, PO, l tablet 19:28: Bedtime, # Katherine nn 31 30 tab, 2 Refill(s), given to patient Lorazepam Yes See Memoria 0.5 MG Oral 1-03 Instructio l Tablet 19:23: ns, Take 1 Katherine nn [Ativan] 00 tab po 1 hour prior to MRI, may repeat q 15 min. if still anxious, # 5 tab, 0 Refill(s) baclofen 10 2018-08 Yes 10 mg = 1 M emoria mg oral 2-05 tab, PO, l tablet 16:06: Bedtime, # Katherine nn 00 30 tab, 2 Refill(s), Pharmacy: [id number] amLODIPine 2018-08 Yes 5 mg = 1 Mem oria 5 mg oral 2-05 tab, PO, l tablet 16:02: Daily, # [place] 00 90 tab, 0 Refill(s) metoprolol 2018-08 Yes 100 mg = 1 M emoria tartrate 2-05 tab, PO, l 100 mg oral 16:00: BID, 0 Herm samia tablet 00 Refill(s) losartan 25 2018-08 Yes 25 mg = 1 M emoria mg oral 2-05 tab, PO, l tablet 16:00: Daily, # [place] 00 30 tab, 0 Refill(s) levothyroxi 2018-08 Yes 75 Memori a ne 75 mcg 2-05 microgram l (0.075 mg) 16:00: = 1 tab, Her gómez oral tablet 00 PO, Daily, # 30 tab, 0 Refill(s) clopidogrel 2018-08 Yes 75 mg = 1 M emoria 75 MG Oral 2-05 tab, PO, l Tablet 16:00: Daily, # Alejandro [Plavix] 00 30 tab, 0 Refill(s) Aspirin 81 2018-08 Yes 81 mg = 1 Me moria MG Enteric 2-05 tab, PO, l Coated 16:00: Daily, # [place] Tablet 00 90 tab, 3 Refill(s) Rosuvastati 2018-08 Yes 10 mg = 1 M emoria n calcium 2-05 tab, PO, l 10 MG Oral 15:59: Bedtime, # H [place] Tablet 00 30 tab, 0 [Crestor] Refill(s) tacrolimus 2018-08 Yes 1 mg = 1 Mem oria 1 mg oral 2-05 cap, PO, l capsule 15:59: Q12H, 0 [place] 00 Refill(s) estradiol 2018-08 2019- No 1{patch Q.5W Place [address] (VIVELLE-DO 08-30 } patch onto L ukes - T) 0.05 09:15: 00:00 the skin Medic al mg/24 hr 25 :00 twice a Center patch week. magnesium 2018-08 Yes 800mg Q.5D Take 2 [facility] oxide -07 tablets [facility] - (MAG-OX) 00:00: (800 mg Medica l 400 mg 00 total) by Center (241.3 mg mouth 2 magnesium) (two) tablet times daily. ALPRAZolam 2018-08 Yes TK /[address] (XANAX) 0.5 0-28 1 T PO QD [facility] - MG tablet 00:00: PRN Medical 00 Center tacrolimus 2019- No TAKE [address] [facility] (PROGRAF) 1 -06 05-22 CAPSULES Evangel[facility] es - MG capsule 00:00: 00:00 BY MOUTH Me dical 00 :00 EVERY Center MORNING AND 1 CAPSULE EVERY EVENING. clopidogrel Yes 75mg Take 75 mg [place] (PLAVIX) 75 2-26 by mouth. Met hodi mg tablet 14:02: st 41 aspirin Yes 81mg Take 81 mg [place] (ECOTRIN) 2-26 by mouth. Metho di 81 MG 14:02: st enteric 41 coated tablet amLODIPine Yes 5mg Take 5 mg [place] (NORVASC) 5 2-26 by mouth. Met hodi mg tablet 14:02: st 41 coenzyme 2018-0 Yes 200mg Take 200 [place] Q10 200 mg 2-26 mg by Methodi capsule 14:02: mouth. st 41 estradiol Yes 1{patch Place 1 [place] (VIVELLE-DO 2- } patch on Meth raven T) 0.05 14:02: the skin. st mg/24 hr 41 levothyroxi Yes 75ug Take 75 Stephania ston ne 2-26 mcg by Methodi (SYNTHROID, 14:02: mouth. st LEVOXYL) 75 41 mcg tablet metoprolol Yes 50 mg- [place] tartrate 2- Take one Methodi (LOPRESSOR) 14:02: tablet st 50 mg 41 daily tablet rosuvastati Yes 10mg Take 10 mg [place] n (CRESTOR) 2- by mouth. Met hodi 10 MG 14:02: st tablet 41 calcium Yes 1{tbl} Chew 1 [place] carbonate 2- tablet. Methodi 300 mg (750 14:02: st mg) 41 tablet,chew able tacrolimus Yes Take 1 [place] (PROGRAF) 1 2-26 capsule 3 Met hodi MG capsule 14:02: times a st 41 day by oral route. omega-3 2017-08 Yes 1g Q.5D Take [address] [facility] acid ethyl 1-15 by mouth 2 Evangel[facility] es - esters 10:30: (two) Medical (LOVAZA) 1 26 times Center gram daily . capsule rosuvastati 2017-08 Yes 20mg QD Take [address] n (CRESTOR) 1-15 by mouth Luke s - 10 MG 10:30: daily . Medical tablet 26 Center aspirin 81 2017-08 Yes 81mg Q.[id number] Take [address] MG EC 1-15 [id number] by mouth 3 Alicia kes - tablet 10:30: 3W (three) Medical 26 times a Center week Patient states she takes the on Thursday and Thursday per PCP recommenda tion. CALCIUM 2017-08 Yes 2{tbl} Take [address] CARBONATE 1-15 tablets by Luke s - ORAL 10:30: mouth once Medical 26 Per Center patient 2 gummies = 1000 mg. cevimeline 2017-08 Yes 30mg Q.[id number] Take [address] (EVOXAC) 30 1-15 [id number] by mouth 3 [facility] - mg capsule 10:30: 3D (three) Medi mindy 26 times Center daily. fluticasone 2017-08 Yes 2{spray Q.5D [address] (FLONASE) 1-15 } by Nasal [facility] - 50 10:30: route 2 Medical mcg/actuati 26 (two) Center on nasal times spray daily. pantoprazol Yes TK 1 T PO [place] e 8-18 QD. Methodi (PROTONIX) 00:00: st 40 MG EC 00 tablet metoprolol 2015-08 Yes 50mg QD Take [address] (TOPROL-XL) 0-18 by mouth Luke s - 100 MG 24 09:16: daily . Medic al hr tablet 10 [place] magnesium Yes 400mg Q.5D Take 400 Stephania ston oxide 9-30 mg by Methodi (MAG-OX) 00:00: mouth 2 st 400 mg 00 (two) tablet times a day. magnesium 2019- No 400mg Take [address] [facility] oxide 9-30 11-07 tablet [facility] - (MAG-OX) 00:00: 00:00 (400 mg Medic al 400 mg 00 :00 total) by Center tablet mouth 3 (three) times daily with meals. amLODIPine 2014-08 Yes 5mg QD Take [address] (NORVASC) 5 0-06 by mouth Luke s - MG tablet 10:44: daily . Medic al 52 [place] lansoprazol Yes 30mg QD Take [address] e 9-16 by mouth [facility] - (PREVACID) 10:41: daily. Medic al 30 MG 44 [place] capsule coenzyme Yes 200mg QD Take [address] Q10 (CO 9-10 mg by [facility] - Q-10) 200 10:18: mouth Medical mg capsule 59 daily. [place] lactobacill Yes 14mg Take [address] us 9-10 by mouth. [facility] - acidophilus 10:18: Medica l Cap 59 [place] clopidogrel Yes 75mg QD Take [address] (PLAVIX) 75 5-04 by mouth Luke s - mg tablet 14:53: daily. Medica l 11 [place] levothyroxi Yes 75ug QD Take [address] ne 5-04 mcg by [facility]ukes - (SYNTHROID, 14:53: mouth Medic al LEVOTHROID) 11 daily. Center 75 MCG tablet fexofenadin Yes 180mg QD Take [address] e (MATTHEW) 5-04 mg by [facility] - 180 MG 14:53: mouth Medical tablet 11 daily. Center Vital Signs Vital Name Observation Time Observation Value Comments Source Systolic (mm Hg) 2020-01-05 18:22:00 Jonn rial [place] Diastolic (mm Hg) 2020-01-05 18:22:00 Mem orial [place] Heart Rate 2020-01-05 18:22:00 [facility] [place] Respitory Rate 2020-01-05 18:22:00 Memori al [place] Height 2020-01-05 18:22:00 165.1 cm [facility] Weight 2020-01-05 18:22:00 [facility] BMI Calculated 2020-01-05 18:22:00 Memori al [place] Systolic (mm Hg) 2019-10-07 20:45:00 Jonn rial [place] Diastolic (mm Hg) 2019-10-07 20:45:00 Mem orial [place] Heart Rate 2019-10-07 20:45:00 [facility] [place] Respitory Rate 2019-10-07 20:45:00 Memori al [place] Height 2019-10-07 20:45:00 165.1 cm [facility] [place] Weight 2019-10-07 20:45:00 [facility] BMI Calculated 2019-10-07 20:45:00 Memori al [place] Systolic (mm Hg) 2019-08-26 19:11:00 Jonn rial [place] Diastolic (mm Hg) 2019-08-26 19:11:00 Mem orial [place] Heart Rate 2019-08-26 19:11:00 [facility] [place] Respitory Rate 2019-08-26 19:11:00 Memori al [place] Height 2019-08-26 19:11:00 165.1 cm [facility] Weight 2019-08-26 19:11:00 [facility] [place] BMI Calculated 2019-08-26 19:11:00 Memori al [place] Systolic (mm Hg) 2019-07-28 15:30:00 Jonn Allen Diastolic (mm Hg) 2019-07-28 15:30:00 Mike Allen Heart Rate 2019-07-28 15:30:00 Eva Allen Height 2019-07-28 15:30:00 162.56 cm Eva Allen Weight 2019-07-28 15:30:00 Eva Allen BMI Calculated 2019-07-28 15:30:00 Erika Hameed Systolic blood 2019-06-30 08:42:00 151 mm[Hg] [facility] Diastolic blood 2019-06-30 08:42:00 84 mm[Hg] [facility] Heart rate 2019-06-30 08:42:00 74 /min [facility] Body temperature 2019-06-30 08:42:00 36.5 Jes [facility] Respiratory rate 2019-06-30 08:42:00 16 /min [facility] Body height 2019-06-30 08:42:00 165.5 cm [facility] Body weight Measured 2019-06-30 08:42:00 83.099 kg [facility] BMI 2019-06-30 08:42:00 30.34 kg/m2 [facility] Oxygen saturation in 2019-06-30 08:42:00 100 /min [facility] Arterial blood by Medical Ce nter Pulse oximetry Procedures Procedure Date / Time Performed Performing Clinician Sourrossy e US ABDOMINAL WITH DOPPLER 2019-06-30 11:35:00 Joselin Pruitt [facility] XR CHEST 2 VIEWS 2019-06-30 10:34:00 Joselin Pruitt [facility] HEPATITIS C PCR, 2019-06-30 08:25:00 Joselin Pruitt [facility] BILIRUBIN, DIRECT 2019-06-30 08:24:00 Joselin Pruitt [facility] COMPREHENSIVE METABOLIC 2019-06-30 08:24:00 Joselin Pruitt [facility] MAGNESIUM 2019-06-30 08:24:00 Joselin Pruitt [facility] PHOSPHORUS 2019-06-30 08:24:00 Joselin Pruitt [facility] TACROLIMUS LEVEL 2019-06-30 08:24:00 Joselin Pruitt [facility] ALPHA FETOPROTEIN (AFP), 2019-06-30 08:24:00 Joselin Pruitt [facility] TUMOR MARKER [facility] CBC W/PLT COUNT & AUTO 2019-06-30 08:24:00 Joselin Pruitt [facility] DIFFERENTIAL [facility] (CELLAVISION MANUAL DIFF) 2019-06-30 08:24:00 Joselin Pruitt [facility] Plan of Care Planned Activity Planned Date Details Comments Source Future Scheduled 2020-04-24 INFLUENZA VACCINE (#1) [facility] Test 00:00:00 [code = INFLUENZA Medical Ce nter VACCINE (#1)] Future Scheduled 2020-03-24 INFLUENZA VACCINE [place] [facility] Test 00:00:00 [code = INFLUENZA VACCINE] Future Scheduled 2017-02-[address] [facility] - Test 00:00:00 WELLNESS (YEAR 2 or Medical Center FIRST YEAR if no IPPE) [code = MEDICARE ANNUAL WELLNESS (YEAR 2 or FIRST YEAR if no IPPE)] Future Scheduled 2016 65+ PNEUMOCOCCAL [place] [facility] Test 00:00:00 VACCINE (1 of 2 - PCV13) [code = 65+ PNEUMOCOCCAL VACCINE (1 of 2 - PCV13)] Future Scheduled 2016 [address]CCAL [address] - Test 00:00:00 HIGH/HIGHEST RISK (1 Medical Center of 2 - PCV13) [code = PNEUMOCOCCAL 65+ HIGH/HIGHEST RISK (1 of 2 - PCV13)] Future Scheduled 2014-09-[address] [facility] - Test 00:00:00 SCREENING [code = Medical Ce nter BREAST CANCER SCREENING] Future Scheduled 2001 BREAST CANCER [place] [facility] Test 00:00:00 SCREENING [code = BREAST CANCER SCREENING] Future Scheduled 2001 COLONOSCOPY SCREENING [place] [facility] Test 00:00:00 [code = COLONOSCOPY SCREENING] Future Scheduled 2001 SHINGLES VACCINES (#1) [place] [facility] Test 00:00:00 [code = SHINGLES VACCINES (#1)] Future Scheduled 1950 COLON CANCER SCREENING [facility] - Test 00:00:00 COLONOSCOPY [code = [facility] COLON CANCER SCREENING COLONOSCOPY] Encounters Start End Encounter Admission Attending Care Care Encounter Source Date/Time Date/Time Type Type Clinicians Facility Department ID 2020-01-05 2020-01-05 Outpatient [facility]shu [facility] [id number] 13:00:00 23:59:59 El Giovanni 2019-10-07 2019-10-07 Outpatient Anshu [facility] [id number] 14:45:00 23:59:59 El Giovanni 2019-08-26 2019-08-26 Outpatient Anshu [facility] [id number] 13:00:00 23:59:59 El Giovanni 2019-07-28 2019-07-28 Outpatient Anshu [facility] [id number] 09:30:00 23:59:59 El 00 Giovanni Results Test Description Test Time Test Comments Results Result Comments Source Hepatitis C PCR, Quantitative 2019-07-02 09:57:00 Test Item Value Reference Range Interpretation Comme nts HCV PCR, Quantitative (test code HCV RNA not detected HCV RNA not d etected = 52941-8) KLAUS (test code = KLAUS) This test uses a Real-Time Polymerase Chain Reaction (RT-PCR) methodology and was performed using COLE Ampliprep/COLE TaqMan HCV test kit version 2.0 ([employer]). Reportable range for this assay is 15 - 100,000,000 IU per mL (1.18 - 8.00 Log IU/mL). Lab Interpretation (test code = Normal 49194-6) [facility] [id number] 09:57:00 Test Item Value Reference Range Interpretation Comments HCV RESULT COMPONENT HCV RNA not detected HCV RNA not detected (BEAKER) (test code = 2699) This test uses a Real-Time Polymerase Chain Reaction (RT-PCR) methodology and was performed using COLE Ampliprep/COLE TaqMan HCV test kit version 2.0 ([employer]ana [employer]).Reportable range for this assay is 15 - 100,000,000 IU per mL (1.18 - 8.00 Log IU/mL).U/S, ABDOMINAL, WITH DOPPLER 2019-06-30 13:26:00Reason for Exam:->s/p OLT; h/o HCCFINAL REPORT TECHNIQUE: Grayscale ultrasound of the abdomen with color Doppler and spectral Doppler ultrasound of the portal/hepatic vasculature. INDICATION: 69-year-old woman with hepatocellular carcinoma status post liver transplant. COMPARISON: Abdomen ultrasound 07/08/2018.FINDINGS: LIVER: Prior orthotopic liver transplantation. The liver is normal in size. Increased echogenicity of the liver, consistent with hepatic steatosis. No focal liver lesions. HEPATIC VASCULATURE: Main portal vein measures 1.1 cm in diameter. Portal veins are patent with normal waveform and directionality. Flow velocity in the main portal vein is within normal limits. The hepatic arteries are patent with normal flow velocities, resistive indices, and waveforms. The hepatic veins and confluence are patent. BILIARY:Gallbladder: Prior cholecystectomy.Common bile duct is slightly prominent and measures 0.8 cm in caliber. No intrahepatic biliary ductal dilatation. PANCREAS: Visualized portions ofthe pancreas are unremarkable. SPLEEN: No splenomegaly. PERITONEUM: No free fluid. KIDNEYS: Both kidneys are normal in size. No hydronephrosis. No sonographically evident solid mass lesion. MIDLINE VASCULATURE: The visualized inferior vena cava is patent. The maximum visualized aortic diameter is 2.3 cm. Splenic artery and vein are patent. IMPRESSION:Steatosis of the transplant liver. Unremarkable Doppler evaluation of the portal and hepatic vasculature. Slightly prominent common bile duct, likelyreservoir effect. This finding may be correlated with liver function tests with cholestasis. Signed:Michelle Davison MDReport Verified Date/Time: 06/30/2019 13:26:43 Reading Location: [address] Radiology Reading Room US abdominal with [id number] 13:26:00Interface, External Ris In - 06/30/2019 1:28 PM CSTFINAL REPORT TECHNIQUE: Grayscale ultrasound of the abdomen with color Doppler and spectral Doppler ultrasound of the portal/hepatic vasculature. INDICATION: 69-year-old woman with hepatocellular carcinoma status post liver transplant. COMPARISON: Abdomen ultrasound 07/08/2018. FINDINGS: LIVER: Prior orthotopic liver transplantation. The liver is normal in size. Increased echogenicity of the liver, consistent with hepatic steatosis. No focal liver lesions. HEPATIC VASCULATURE: Main portal vein measures 1.1 cm in diameter. Portal veins are patent with normal waveform and directionality. Flow velocity in the main portal veinis within normal limits. The hepatic arteries are patent with normal flow velocities, resistive indices, and waveforms. The hepatic veins and confluence are patent. BILIARY:Gallbladder: Prior cholecystectomy.Common bile duct is slightly prominent and measures 0.8 cm in caliber. No intrahepatic biliaryductal dilatation. PANCREAS: Visualized portions of the pancreas are unremarkable. SPLEEN: No splenomegaly. PERITONEUM: No free fluid. KIDNEYS: Both kidneys are normal in size. No hydronephrosis. No sonographically evident solid mass lesion. MIDLINE VASCULATURE: The visualized inferior vena cava is patent. The maximum visualized aortic diameter is 2.3 cm. Splenic artery and vein are patent. IMPRESSION:Steatosis of the transplant liver. Unremarkable Doppler evaluation of the portal and hepatic vasculature. Slightly prominent common bile duct, likely reservoir effect. This finding may be correlatedwith liver function tests with cholestasis. Signed: Michelle Davison MDReport Verified Date/Time: 06/30/2019 13:26:43 Reading Location: [address] [facility] + automated [id number] 13:03:00 Test Item Value Reference Range Interpretation Comments WBC (test code = 6690-2) 6.8 3.5- 10.5 K/L RBC (test code = 789-8) 4.12 3.93- 5.22 M/L MCHC (test code = 786-4) 31.6 32.2- 35.5 GM/DL L Hematocrit (test code = 4544-3) 37.7 % 34.1-44.9 MCV (test code = 787-2) 91.5 fL 79.4-94.8 MCH (test code = 785-6) 28.9 pg 25.6-32.2 RDW (test code = 788-0) 14.9 % 11.7-14.4 H Platelets (test code = 777-3) 294 150- 450 K/CU MM MPV (test code = 50994-2) 10.1 fL 9.4-12.3 nRBC (test code = 413) 0 0- 0 /100 WBC Lab Interpretation (test code = Abnormal 48098-9) [facility] [id number] 13:03:00 Test Item Value Reference Range Interpretation Comments % Neutros (test code = 59 % 2816) % Lymphs (test code = 27 % 2817) % Monos (test code = 2818) 6 % % Eos (test code = 2819) 4 % % Atypical Lymphs (test 4 % 0-0 H code = 2829) # Neutros (test code = 4.01 K/ul 1.56-6.13 2830) # Lymphs (test code = 1.84 K/ul 1.18-3.74 2831) # Monos (test code = 2832) 0.41 K/uL 0.24-0.36 H # Eos (test code = 2834) 0.27 K/uL 0.04-0.36 # Atypical Lymphs (test 0.27 K/uL 0-0 H code = 2858) Total Counted (test code = 100 1351) RBC Morphology (test code Normal = 762) Smudge Cells (test code = Present 1371) Giant Platelet (test code Present = 313) Artifact (test code = Present 3432) Platelet Conc (test code = Adequate 3438) KLAUS (test code = KLAUS) Received comment: User comments: Slide comments: Lab Interpretation (test Abnormal code = 48741-6) [facility] & AUTO [id number] 13:03:00 Test Item Value Reference Range Interpretation Comments WHITE BLOOD CELL COUNT (BEAKER) 6.8 K/ L 3.5-10.5 (test code = 775) RED BLOOD CELL COUNT (BEAKER) 4.12 M/ L 3.93-5.22 (test code = 761) HEMOGLOBIN (BEAKER) (test code = 11.9 GM/DL 11.2-15.7 410) HEMATOCRIT (BEAKER) (test code = 37.7 % 34.1-44.9 411) MEAN CORPUSCULAR VOLUME (BEAKER) 91.5 fL 79.4-94.8 (test code = 753) MEAN CORPUSCULAR HEMOGLOBIN 28.9 pg 25.6-32.2 (BEAKER) (test code = 751) MEAN CORPUSCULAR HEMOGLOBIN CONC 31.6 GM/DL 32.2-35.5 L (BEAKER) (test code = 752) RED CELL DISTRIBUTION WIDTH 14.9 % 11.7-14.4 H (BEAKER) (test code = 412) PLATELET COUNT (BEAKER) (test 294 K/CU MM 150-450 code = 756) MEAN PLATELET VOLUME (BEAKER) 10.1 fL 9.4-12.3 (test code = 754) NUCLEATED RED BLOOD CELLS 0 /100 WBC 0-0 (BEAKER) (test code = 413) (CELLAVISION MANUAL DIFF)2019-06-30 13:03:00 Test Item Value Reference Range Interpretation Comments NEUTROPHILS - REL 59 % (CELLAVISION)(BEAKER) (test code = 2816) LYMPHOCYTES - REL 27 % (CELLAVISION)(BEAKER) (test code = 2817) MONOCYTES - REL 6 % (CELLAVISION)(BEAKER) (test code = 2818) EOSINOPHILS - REL 4 % (CELLAVISION)(BEAKER) (test code = 2819) ATYPICAL LYMPHOCYTES - REL 4 % 0-0 H (CELLAVISION)(BEAKER) (test code = 2829) NEUTROPHILS - ABS 4.01 K/ul 1.56-6.13 (CELLAVISION)(BEAKER) (test code = 2830) LYMPHOCYTES - ABS 1.84 K/ul 1.18-3.74 (CELLAVISION)(BEAKER) (test code = 2831) MONOCYTES - ABS 0.41 K/uL 0.24-0.36 H (CELLAVISION)(BEAKER) (test code = 2832) EOSINOPHILS - ABS 0.27 K/uL 0.04-0.36 (CELLAVISION)(BEAKER) (test code = 2834) ATYPICAL LYMPHOCYTES - ABS 0.27 K/uL 0.00-0.00 H (CELLAVISION)(BEAKER) (test code = 2858) TOTAL COUNTED (BEAKER) (test code = 100 1351) RBC MORPHOLOGY (BEAKER) (test code Normal = 762) SMUDGE CELLS (BEAKER) (test code = Present 1371) GIANT PLATELETS (BEAKER) (test code Present = 313) ARTIFACT (CELLAVISION)(BEAKER) Present (test code = 3432) PLATELET CONCENTRATION Adequate (CELLAVISION)(BEAKER) (test code = 3438) Received comment: User comments: Slide comments:RAD, CHEST, 2 [id number] 12:36:00Reason for Exam:->s/p OLT; h/o HCCFINAL REPORT TECHNIQUE: Frontal and lateral views of the chest. INDICATION: 69-year-old woman with hepatocellular carcinoma status post liver transplant. COMPARISON: Chest radiographs 07/08/2018. FINDINGS: LINES/TUBES: None. LUNGS: The lungs are well inflated and clear. PLEURA:No pleural effusion or pneumothorax. HEART AND MEDIASTINUM: The cardiomediastinal silhouette is within normal limits. SOFT TISSUES AND BONES: Degenerative changes of the visualized spine. Soft tissues a re unremarkable. IMPRESSION:No acute cardiopulmonary abnormalities. Signed: Michelle Davison MDReport Verified Date/Time: 06/30/2019 12:36:06 Reading Location: [address] Radiology Reading Room XR chest 2 [id number] 12:36:00Interface, External Ris In - 06/30/2019 12:38 PM CSTFINAL REPORT TECHNIQUE: Frontal and lateral views of the chest. INDICATION: 69-year-old woman with hepatocellular carcinoma status post liver transplant. COMPARISON: Chest radiographs 07/08/2018. FINDINGS: LINES/TUBES: None. LUNGS: The lungs are well inflated and clear. PLEURA: No pleural effusion or pneumothorax. HEART AND MEDIASTINUM: The cardiomediastinal silhouette is within normal limits. SOFT TISSUES AND BONES: Degenerative changes of the visualized spine. Soft tissues are unremarkable. IMPRESSION:No acute cardiopulmonary abnormalities. Signed: Michelle Davison MDReport Verified Date/Time: 06/30/2019 12:36:06 Reading Location: [address] Radiology Reading [facility] [id number] 12:07:00 Test Item Value Reference Range Interpretation Comments Tacrolimus Lvl (test code = 5.1 ng/mL 10-20 L 69267-7) Lab Interpretation (test code = Abnormal 37347-2) [facility] [id number] 12:07:00 Test Item Value Reference Range Interpretation Comments TACROLIMUS BLOOD (BEAKER) (test 5.1 ng/mL 10.0-20.0 L code = 657) Alpha fetoprotein (AFP), tumor [id number] 11:30:00 Test Item Value Reference Range Interpretation Comments Alpha-Fetoprotein (test code = 6.7 ng/mL <10.0 1834-1) Lab Interpretation (test code = Normal 96580-0) [facility] (AFP), TUMOR [id number] 11:30:00 Test Item Value Reference Range Interpretation Comments ALPHA-FETOPROTEIN (BEAKER) (test 6.7 ng/mL <10.0 code = 1094) Comprehensive metabolic [id number] 10:05:00 Test Item Value Reference Range Interpretation Comments Protein, Total (test 7.7 6.0- 8.3 gm/dL code = 2885-2) Albumin (test code = 4.4 g/dL 3.5-5 53375-0) Alkaline Phosphatase 64 U/L 40-150 (test code = 6768-6) Total Bilirubin (test 0.3 mg/dL 0.2-1.2 code = 1975-2) Sodium (test code = 139 meq/L 103-628 5495-2) Potassium (test code = 4.7 meq/L 3.5-5.1 2823-3) Chloride (test code = 102 meq/L 98-107 2075-0) CO2 (test code = 31 meq/L 22-29 H 2027-9) BUN (test code = 18 mg/dL 7-21 3094-0) Creatinine (test code = 1.21 mg/dL 0.57-1.25 2160-0) Glucose (test code = 119 mg/dL 70-105 H 2345-7) Calcium (test code = 9.8 mg/dL 8.4-10.2 37756-6) AST (test code = 32 U/L 5-34 1920-8) ALT (test code = 48 U/L 6-55 1742-6) EGFR (test code = 44 mL/min/1.73 [place] [address]-9) NOT ACCURATE CREATININE CLEARANCE IN PREDICTING GLOMERULAR FILTRATION RATE . ESTIMATED GFR I S NOT APPLICABLE FOR DIALYSIS PATIEN TS. Lab Interpretation Abnormal (test code = 40029-8) [facility], [id number] 10:05:00 Test Item Value Reference Range Interpretation Comments Bilirubin, Direct (test code = 0.1 mg/dL 0.1-0.5 1968-02) Lab Interpretation (test code = Normal 06893-9) [facility]2019-[facility] 10:05:00 Test Item Value Reference Range Interpretation Comments Magnesium (test code = 08487-7) 1.9 mg/dL 1.6-2.6 Lab Interpretation (test code = Normal 69264-7) [facility]2019-[facility] 10:05:00 Test Item Value Reference Range Interpretation Comments Phosphorus (test code = 2777-1) 4.0 mg/dL 2.3-4.7 Lab Interpretation (test code = Normal 94283-1) [facility]2019-11-07 10:05:00 Test Item Value Reference Range Interpretation Comments PHOSPHORUS (BEAKER) (test code = 4.0 mg/dL 2.3-4.7 604) [id number] 10:05:00 Test Item Value Reference Range Interpretation Comments MAGNESIUM (BEAKER) (test code = 1.9 mg/dL 1.6-2.6 627) COMPREHENSIVE METABOLIC [id number] 10:05:00 Test Item Value Reference Range Interpretation Comments TOTAL PROTEIN 7.7 gm/dL 6.0-8.3 (BEAKER) (test code = 770) ALBUMIN (BEAKER) 4.4 g/dL 3.5-5.0 (test code = 1145) ALKALINE PHOSPHATASE 64 U/L 40-150 (BEAKER) (test code = 346) BILIRUBIN TOTAL 0.3 mg/dL 0.2-1.2 (BEAKER) (test code = 377) SODIUM (BEAKER) (test 139 meq/L 136-145 code = 381) POTASSIUM (BEAKER) 4.7 meq/L 3.5-5.1 (test code = 379) CHLORIDE (BEAKER) 102 meq/L 98-107 (test code = 382) CO2 (BEAKER) (test 31 meq/L 22-29 H code = 355) BLOOD UREA NITROGEN 18 mg/dL 7-21 (BEAKER) (test code = 354) CREATININE (BEAKER) 1.21 mg/dL 0.57-1.25 (test code = 358) GLUCOSE RANDOM 119 mg/dL 70-105 H (BEAKER) (test code = 652) CALCIUM (BEAKER) 9.8 mg/dL 8.4-10.2 (test code = 697) AST (SGOT) (BEAKER) 32 U/L 5-34 (test code = 353) ALT (SGPT) (BEAKER) 48 U/L 6-55 (test code = 347) EGFR (BEAKER) (test 44 mL/min/1.73 ESTIMA TISHA GFR IS code = 1092) sq m NOT ACCURATE CREATININE CLEARANCE IN PREDICTING GLOMERULAR FILTRATION RATE . ESTIMATED GFR I S NOT APPLICABLE FOR DIALYSIS PATIEN TS. BILIRUBIN, [id number] 10:05:00 Test Item Value Reference Range Interpretation Comments BILIRUBIN DIRECT (BEAKER) (test 0.1 mg/dL 0.1-0.5 code = 706) HEPATITIS C PCR, [id number] 10:37:00 Test Item Value Reference Range Interpretation Comments HCV RESULT COMPONENT HCV RNA not detected HCV RNA not detected (BEAKER) (test code = 2699) This test uses a Real-Time Polymerase Chain Reaction (RT-PCR) methodology and was performed using COLE Ampliprep/COLE TaqMan HCV test kit version 2.0 ([employer]Reportable range for this assay is 15 - 100,000,000 IU per mL (1.18 - 8.00 Log IU/mL).TACROLIMUS [id number] 15:40:00 Test Item Value Reference Range Interpretation Comments TACROLIMUS BLOOD (BEAKER) (test 6.4 ng/mL 10.0-20.0 L code = 657) U/S, ABDOMINAL, WITH [id number] 13:59:00Doppler Study to evaluate Hepatic vesselsReason for Exam:->s/p liver transplant; h/o HCCFINAL REPORT TECHNIQUE: Grayscale ultrasound of the abdomen with color Doppler and spectral Doppler ultrasound of the portal/hepatic vasculature. INDICATION: Status post liver transplant. History of HCC. COMPARISON: Ultrasound from 06/16/2017. FINDINGS: LIVER: The liver is hyperechoic with decreased through- transmission and measures up to 16.7 cm. HEPATIC VASCULATURE: Portal veins are patent with normal waveform and directionality. Flow velocity in the main portal vein is within normal limits. The hepatic arterial flow velocities are normal. However, the resistive indices are at the upper limit of normal. The resistive index the proper hepatic artery is 0.8, right hepatic artery 0.8, and left hepatic artery 0.7.. The hepatic veins and confluence are patent. The main portalvein measures 1.1 cm. BILIARY:Gallbladder: No gallstones or sludge. No gallbladder wall thickening, pericholecystic fluid, or distention. Negative sonographic Freitas sign.Common bile duct measures 0.5 cm, within normal limits. No intrahepatic biliary ductal dilatation. PANCREAS: Incompletely visualized due to overlying bowel gas. SPLEEN: No splenomegaly. The spleen measures 11 cm PERITONEUM: No free fluid. KIDNEYS: Normal in size bilaterally. No hydronephrosis. No sonographically evident solid mass lesion. MIDLINE VASCULATURE: The visualized inferior vena cava is patent. The maximum visualized aortic diameter is 2.3 cm. Splenic artery and vein are patent. IMPRESSION: 1.Diffuse fatty infiltrationof the liver. 2.The transplant vasculature is patent. The upper limit of normal resistive indices inthe proper and right hepatic arteries could be due to the fatty infiltration. Signed: Adam Bryan port Verified Date/Time: 07/08/2018 13:59:49 Reading Location: [address] Radiology Reading Room ALPHA FETOPROTEIN (AFP), TUMOR [id number] 12:41:00 Test Item Value Reference Range Interpretation Comments ALPHA-FETOPROTEIN (BEAKER) (test 6.6 ng/mL <10.0 code = 1094) COMPREHENSIVE METABOLIC [id number] 12:32:00 Test Item Value Reference Range Interpretation Comments TOTAL PROTEIN 7.4 gm/dL 6.0-8.3 (BEAKER) (test code = 770) ALBUMIN (BEAKER) 4.4 g/dL 3.5-5.0 (test code = 1145) ALKALINE PHOSPHATASE 53 U/L 40-150 (BEAKER) (test code = 346) BILIRUBIN TOTAL 0.4 mg/dL 0.2-1.2 (BEAKER) (test code = 377) SODIUM (BEAKER) (test 139 meq/L 136-145 code = 381) POTASSIUM (BEAKER) 4.8 meq/L 3.5-5.1 (test code = 379) CHLORIDE (BEAKER) 103 meq/L 98-107 (test code = 382) CO2 (BEAKER) (test 31 meq/L 22-29 H code = 355) BLOOD UREA NITROGEN 18 mg/dL 7-21 (BEAKER) (test code = 354) CREATININE (BEAKER) 1.06 mg/dL 0.57-1.25 (test code = 358) GLUCOSE RANDOM 109 mg/dL 70-105 H (BEAKER) (test code = 652) CALCIUM (BEAKER) 9.6 mg/dL 8.4-10.2 (test code = 697) AST (SGOT) (BEAKER) 32 U/L 5-34 (test code = 353) ALT (SGPT) (BEAKER) 46 U/L 6-55 (test code = 347) EGFR (BEAKER) (test 52 mL/min/1.73 ESTIMA TISHA GFR IS code = 1092) sq m NOT ACCURATE CREATININE CLEARANCE IN PREDICTING GLOMERULAR FILTRATION RATE . ESTIMATED GFR I S NOT APPLICABLE FOR DIALYSIS PATIEN TS. [id number] 12:32:00 Test Item Value Reference Range Interpretation Comments MAGNESIUM (BEAKER) (test code = 2.0 mg/dL 1.6-2.6 627) [id number] 12:32:00 Test Item Value Reference Range Interpretation Comments PHOSPHORUS (BEAKER) (test code = 3.7 mg/dL 2.3-4.7 604) BILIRUBIN, [id number] 12:32:00 Test Item Value Reference Range Interpretation Comments BILIRUBIN DIRECT (BEAKER) (test 0.1 mg/dL 0.1-0.5 code = 706) CBC W/PLT COUNT & AUTO [id number] 11:58:00 Test Item Value Reference Range Interpretation Comments WHITE BLOOD CELL COUNT (BEAKER) 6.1 K/ L 3.5-10.5 (test code = 775) RED BLOOD CELL COUNT (BEAKER) 4.13 M/ L 3.93-5.22 (test code = 761) HEMOGLOBIN (BEAKER) (test code = 11.7 GM/DL 11.2-15.7 410) HEMATOCRIT (BEAKER) (test code = 37.4 % 34.1-44.9 411) MEAN CORPUSCULAR VOLUME (BEAKER) 90.6 fL 79.4-94.8 (test code = 753) MEAN CORPUSCULAR HEMOGLOBIN 28.3 pg 25.6-32.2 (BEAKER) (test code = 751) MEAN CORPUSCULAR HEMOGLOBIN CONC 31.3 GM/DL 32.2-35.5 L (BEAKER) (test code = 752) RED CELL DISTRIBUTION WIDTH 15.8 % 11.7-14.4 H (BEAKER) (test code = 412) PLATELET COUNT (BEAKER) (test 267 K/CU MM 150-450 code = 756) MEAN PLATELET VOLUME (BEAKER) 10.5 fL 9.4-12.3 (test code = 754) NUCLEATED RED BLOOD CELLS 0 /100 WBC 0-0 (BEAKER) (test code = 413) NEUTROPHILS RELATIVE PERCENT 53 % (BEAKER) (test code = 429) LYMPHOCYTES RELATIVE PERCENT 33 % (BEAKER) (test code = 430) MONOCYTES RELATIVE PERCENT 9 % (BEAKER) (test code = 431) EOSINOPHILS RELATIVE PERCENT 4 % (BEAKER) (test code = 432) BASOPHILS RELATIVE PERCENT 1 % (BEAKER) (test code = 437) NEUTROPHILS ABSOLUTE COUNT 3.27 K/ L 1.56-6.13 (BEAKER) (test code = 670) LYMPHOCYTES ABSOLUTE COUNT 1.99 K/ L 1.18-3.74 (BEAKER) (test code = 414) MONOCYTES ABSOLUTE COUNT (BEAKER) 0.57 K/ L 0.24-0.36 H (test code = 415) EOSINOPHILS ABSOLUTE COUNT 0.23 K/ L 0.04-0.36 (BEAKER) (test code = 416) BASOPHILS ABSOLUTE COUNT (BEAKER) 0.04 K/ L 0.01-0.08 (test code = 417) IMMATURE GRANULOCYTES-RELATIVE 0 % 0-1 PERCENT (BEAKER) (test code = 2801) RAD, CHEST, 2 [id number] 11:20:00PA and Lateral for Liver TransplantReason for Exam:->s/p liver transplant; h/o HCCFINAL REPORT PA and Lateral views of the chest dated 07/08/2018 COMPARISON: June 16, 2017 Clinical information: s/p liver transplant; h/o HCC Comment: Heart is normal in size. Pulmonary vasculature is unremarkable. Lungs are clear. No pulmonary infiltrate or pleural effusion is present. Impression: No active cardiopulmonary disease or interval change. Signed: Margret SoriaMDReport Verified Date/Time: 07/08/2018 11:20:52 Reading Location: [address] Ultrasound Reading Room TACROLIMUS [id number] 16:00:00 Test Item Value Reference Range Interpretation Comments TACROLIMUS BLOOD (BEGOOD) (test 4.1 ng/mL 10.0-20.0 L code = 657) U/S, ABDOMINAL, WITH [id number] 15:50:00Doppler Study to evaluate Hepatic vesselsReason for Exam:->liver transplant needs dopplerFINAL REPORT INDICATION:67-year-old female status post liver transplant in 200 8. COMPARISON:June 10, 2016 TECHNIQUE:Ultrasound of the Abdomen and Doppler evaluation. Sonographic evaluation of the abdomen was performed, including color flow and spectral Doppler analysis of theabdominal vasculature. FINDINGS:Pancreas, to the extent visualized, is unremarkable. Splenic vein atthe level the pancreatic head is patent and demonstrates normal direction of flow. Abdominal aorta and IVC are unremarkable. Liver transplant echogenicity is unremarkable. No liver mass is demonstrated. The main portal vein measures 1.1 cm in diameter and demonstrates normal direction of flow with a velocity of 21 cm/s. The proper hepatic artery is patent with a resistive index of 0.68 and acceleration time of 0.04 seconds. The left hepatic artery and right hepatic artery are visualized and demonstrate normal resistive indices, 0.65 and 0.66 respectively. The left portal vein and right portal vein are patent and demonstrate normal direction of flow. The right, middle, and left hepatic veins are patent. The hepatic venous confluence and intrahepatic cava are patent. Spleen is normal in size measuring 11 cm in length. Common bile duct measures 0.67 m in diameter. Gallbladder is absent. Right kidney measures 10.6 x 5.1 x 5.0 cm and left kidney measures 10.4 x 5.0 x 4.8 cm. There is no hydronephrosis. There is no ascites and no pleural effusion is demonstrated. IMPRESSION:Liver transplant without evidence of complication. Signed: Luicano Mondragon Verified Date/Time: 06/16/2017 15:50:44 Reading Location: [address] Radiology Reading Room RAD, CHEST, 2 [id number] 14:58:00PA and Lateral for Liver TransplantReason for Exam:->liver transplantFINAL REPORT INDICATION: liver transplant COMPARISON: June 10, 2016 TECHNIQUE: Chest radiograph, two views, PA and lateral. FINDINGS:Lung volumes are normal and there is no evidence of pneumonia or pulmonary edema. Cardiac and mediastinal contours are normal. There is no pneumothorax or pleural effusion. Osseous structures are unremarkable. IMPRESSION: No radiographic evidence of pulmonary or cardiac disease. Signed: Luciano Mondragon Verified Date/Time: 06/16/201714:58:20 Reading Location: [address] Radiology Reading Room [id number] 11:06:00 Test Item Value Reference Range Interpretation Comments PHOSPHORUS (BEAKER) (test code = 3.6 mg/dL 2.3-4.7 604) [id number] 11:06:00 Test Item Value Reference Range Interpretation Comments MAGNESIUM (BEAKER) (test code = 1.8 mg/dL 1.6-2.6 627) COMPREHENSIVE METABOLIC [id number] 11:06:00 Test Item Value Reference Range Interpretation Comments TOTAL PROTEIN 7.2 gm/dL 6.0-8.3 (BEAKER) (test code = 770) ALBUMIN (BEAKER) 4.2 g/dL 3.5-5.0 (test code = 1145) ALKALINE PHOSPHATASE 59 U/L 40-150 (BEAKER) (test code = 346) BILIRUBIN TOTAL 0.5 mg/dL 0.2-1.2 (BEAKER) (test code = 377) SODIUM (BEAKER) (test 138 meq/L 136-145 code = 381) POTASSIUM (BEAKER) 4.2 meq/L 3.5-5.1 (test code = 379) CHLORIDE (BEAKER) 102 meq/L 98-107 (test code = 382) CO2 (BEAKER) (test 27 meq/L 22-29 code = 355) BLOOD UREA NITROGEN 16 mg/dL 7-21 (BEAKER) (test code = 354) CREATININE (BEAKER) 1.10 mg/dL 0.57-1.25 (test code = 358) GLUCOSE RANDOM 116 mg/dL 70-105 H (BEAKER) (test code = 652) CALCIUM (BEAKER) 9.3 mg/dL 8.4-10.2 (test code = 697) AST (SGOT) (BEAKER) 23 U/L 5-34 (test code = 353) ALT (SGPT) (BEAKER) 23 U/L 6-55 (test code = 347) EGFR (BEAKER) (test 50 mL/min/1.73 ESTIMA TISHA GFR IS code = 1092) sq m NOT ACCURATE CREATININE CLEARANCE IN PREDICTING GLOMERULAR FILTRATION RATE . ESTIMATED GFR I S NOT APPLICABLE FOR DIALYSIS PATIEN TS. BILIRUBIN, [id number] 11:06:00 Test Item Value Reference Range Interpretation Comments BILIRUBIN DIRECT (BEAKER) (test 0.2 mg/dL 0.1-0.5 code = 706) CBC W/PLT COUNT & AUTO [id number] 10:10:00 Test Item Value Reference Range Interpretation Comments WHITE BLOOD CELL COUNT (BEAKER) 5.0 K/ L 3.5-10.5 (test code = 775) RED BLOOD CELL COUNT (BEAKER) 3.91 M/ L 3.93-5.22 L (test code = 761) HEMOGLOBIN (BEAKER) (test code = 11.2 GM/DL 11.2-15.7 410) HEMATOCRIT (BEAKER) (test code = 34.9 % 34.1-44.9 411) MEAN CORPUSCULAR VOLUME (BEAKER) 89.3 fL 79.4-94.8 (test code = 753) MEAN CORPUSCULAR HEMOGLOBIN 28.6 pg 25.6-32.2 (BEAKER) (test code = 751) MEAN CORPUSCULAR HEMOGLOBIN CONC 32.1 GM/DL 32.2-35.5 L (BEAKER) (test code = 752) RED CELL DISTRIBUTION WIDTH 15.3 % 11.7-14.4 H (BEAKER) (test code = 412) PLATELET COUNT (BEAKER) (test 253 K/CU MM 150-450 code = 756) MEAN PLATELET VOLUME (BEAKER) 10.0 fL 9.4-12.3 (test code = 754) NUCLEATED RED BLOOD CELLS 0 /100 WBC 0-0 (BEAKER) (test code = 413) NEUTROPHILS RELATIVE PERCENT 50 % (BEAKER) (test code = 429) LYMPHOCYTES RELATIVE PERCENT 34 % (BEAKER) (test code = 430) MONOCYTES RELATIVE PERCENT 10 % (BEAKER) (test code = 431) EOSINOPHILS RELATIVE PERCENT 6 % (BEAKER) (test code = 432) BASOPHILS RELATIVE PERCENT 0 % (BEAKER) (test code = 437) NEUTROPHILS ABSOLUTE COUNT 2.49 K/ L 1.56-6.13 (BEAKER) (test code = 670) LYMPHOCYTES ABSOLUTE COUNT 1.69 K/ L 1.18-3.74 (BEAKER) (test code = 414) MONOCYTES ABSOLUTE COUNT (BEAKER) 0.49 K/ L 0.24-0.36 H (test code = 415) EOSINOPHILS ABSOLUTE COUNT 0.31 K/ L 0.04-0.36 (BEAKER) (test code = 416) BASOPHILS ABSOLUTE COUNT (BEAKER) 0.02 K/ L 0.01-0.08 (test code = 417) IMMATURE GRANULOCYTES-RELATIVE 0 % 0-1 PERCENT (BEAKER) (test code = 9807)
--- NOTE | 2020-02-29 07:19 | EKG ---
Test Date: 2020-02-28 Test Time: 12:14:21 [address] Pressman: RAUDEL MEASUREMENT RESULTS: Intervals: Rate: 86 [place]: 160 QRSD: 82 QT: 332 QTc: 397 Clio: P: 32 AZ: 160 QRS: 31 T: 61 INTERPRETIVE STATEMENTS: Normal sinus rhythm Normal ECG Compared to ECG 04/17/2011 15:41:45 Left ventricular hypertrophy no longer present Electronically Signed On 02-29-20 07:18:11 CDT by Helio Sanderson
== END 2020-02-28 14:33 | disposition home or self-care (01) ==
LOC: ER 11:16
DX: I51.7 Cardiomegaly (principal); D64.9 Anemia, unspecified; I10 Essential (primary) hypertension; Z94.4 Liver transplant status; Z88.8 Allergy status to other drugs, medicaments and biological substances
CPT/HCPCS: 93005; 85025; 80048; 36415; 80076; 84443; 84484; 71045; 96360; 99284; J7030